=== PATIENT | female | born 1935 | race Caucasian/White ===

== ENCOUNTER 2016-12-21 17:32 | Observation (INO) | payer MEDICARE, OTHER ==
[~2016-12-21] VITALS: Ht 167.6 cm; Wt 100.0 kg
[~2016-12-21 17:32] MED LIST: COUM5TAB PO; DILTSR120 PO; HYDR12.56 PO
[2016-12-21 17:36] VITALS: BP 279/179; PULSE 96; RESP 24; TEMP 97.2; O2SAT 93
[2016-12-21] MEDS ORDERED: CARD120T4 PO (17:55)
[2016-12-21] MEDS ORDERED: COUM5TAB PO (17:55)
--- NOTE | 2016-12-21 18:14 | PD ---
HPI Chief Complaint: Chest Pain Time Seen by Provider: 18:00 Travel History International Travel<30 days: No Contact w/Intl Traveler<30days: No Traveled to known affect area: No History of Present Illness HPI Patient comes in complaining of substernal chest pain that began yesterday evening that is constant. Patient states occasionally feels it radiates to her left shoulder however states he has some numbness and tingling from previous stroke there. Patient reports occasional dyspnea on exertion with this. Denies any shortness of breath otherwise. Denies any fevers, nausea, vomiting, abdominal pain, back pain, neck pain, headaches, change in vision, numbness or tingling anywhere, or loss change in bowel or bladder. Patient denies doing anything for this. Denies anything making it better. PFSH Past Medical History Arthritis: Yes Asthma: No Atrial Fibrillation: Yes Blood Disorders: No Anxiety: No Depression: No Heart Rhythm Problems: Yes (AFIB) Cancer: No Cardiovascular Problems: No High Cholesterol: No Chemotherapy: No Chest Pain: No Congestive Heart Failure: Yes COPD: No Cerebrovascular Accident: Yes (2010) Diabetes: No Diminished Hearing: No Endocrine: No GERD: No Glaucoma: No Genitourinary: No Headaches: No Hepatitis: No Hiatal Hernia: No Hypertension: Yes Kidney Stones: No Musculoskeletal: No Neurologic: Yes (CVA) Psychiatric: No Reproductive: No Respiratory: No Immunizations Current: No Migraines: No Myocardial Infarction: No Renal Failure: No Seizures: No Sickle Cell Disease: No Sleep Apnea: No Thyroid Disease: No Ulcer: No Menopausal: Yes : 2 Para: 2 Miscarriage: 0 : 0 Past Surgical History Abdominal Surgery: Yes (HYSTERECTOMY) AICD: No Appendectomy: No Arteriovenous Shunt: No Cardiac Surgery: No Cholecystectomy: No Ear Surgery: No Endocrine Surgery: No Eye Surgery: No Genitourinary Surgery: No Gynecologic Surgery: Yes Hysterectomy: Yes (partial) Insulin Pump: No Joint Replacement: No Neurologic Surgery: Yes (CVA 2010) Oral Surgery: No Pacemaker: No Thoracic Surgery: No Tonsillectomy: Yes Other Surgery: Yes (SCLEROTHERAPY) Social History Alcohol Use: No Tobacco Use: No Substance Use: No Allergies-Medications (Allergen,Severity, Reaction): Coded Allergies: No Known Allergies (Verified , 12/21/16) Reported Meds & Prescriptions Reported Meds & Active Scripts Active Reported Coumadin (Warfarin) 5 Mg Tab 5 Mg PO DAILY Cardizem (Diltiazem HCl) 120 Mg Tab 120 Mg PO DAILY Review of Systems Except as stated in HPI: all other systems reviewed are Neg Physical Exam Narrative GENERAL: Well-developed, overly nourished, in no acute distress, and non-ill appearing. SKIN: Focused skin assessment warm and dry. HEAD: Atraumatic. Normocephalic. EYES: Pupils equal and round. EOMI. No scleral icterus. No injection or drainage. ENT: No nasal bleeding or discharge. Mucous membranes pink and moist. NECK: Trachea midline. Supple. No nuclear rigidity. CARDIOVASCULAR: Regular rate and rhythm. No murmur appreciated. RESPIRATORY: No accessory muscle use. No respiratory distress. Clear to auscultation. Breath sounds equal bilaterally. MUSCULOSKELETAL: No obvious deformities. No clubbing. No cyanosis. 2+ pitting edema bilateral lower extremities patient reports is chronic. Full range of motion. NEUROLOGICAL: Awake and alert. No obvious cranial nerve deficits. Motor grossly within normal limits. Normal speech. PSYCHIATRIC: Appropriate mood and affect; insight and judgment normal. Data Data Last Documented VS Vital Signs Date Time Temp Pulse Resp B/P (MAP) Pulse Ox O2 Delivery O2 Flow Rate FiO2 12/21/16 18:47 18 97 Room Air 12/21/16 18:30 62 12/21/16 17:36 97.2 Orders Orders Electrocardiogram (12/21/16 18:09) Basic Metabolic Panel (Bmp) (12/21/16 18:09) B-Type Natriuretic Peptide (12/21/16 18:09) Ckmb (Isoenzyme) Profile (12/21/16 18:09) Complete Blood Count With Diff (12/21/16 18:09) Magnesium (Mg) (12/21/16 18:09) Prothrombin Time / Inr (Pt) (12/21/16 18:09) Act Partial Throm Time (Ptt) (12/21/16 18:09) Troponin I (12/21/16 18:09) Chest, Single Ap (12/21/16 18:09) Ecg Monitoring (12/21/16 18:09) Bilateral Bp Monitoring (12/21/16 18:09) Iv Access Insert/Monitor (12/21/16 18:09) Oximetry (12/21/16 18:09) Oxygen Administration (12/21/16 18:09) Sodium Chloride 0.9% Flush (Ns Flush) (12/21/16 18:15) Admit Order (Ed Use Only) (12/21/16 19:43) Activity Bed Rest With Brp (12/21/16 19:43) Vital Signs (Adult) Q4H (12/21/16 19:43) Cardiac Rhythm .As Directed (12/21/16 19:43) Notify Dr: Other .PRN (12/21/16 19:43) Notify DrBronwyn Parameters (12/21/16 19:43) Resp Oxygen Nasal Cannula (12/21/16 ) Ckmb (Isoenzyme) Profile (12/21/16 20:53) Ckmb (Isoenzyme) Profile (12/21/16 23:53) Troponin I (12/21/16 20:53) Troponin I (12/21/16 23:53) Electrocardiogram (12/21/16 20:53) Electrocardiogram (12/21/16 23:53) ^ Obtain (12/21/16 19:43) Sodium Chloride 0.9% Flush (Ns Flush) (12/21/16 19:45) Sodium Chloride 0.9% Flush (Ns Flush) (12/21/16 21:00) Napping Machine Operator / Telemetry EBEN.Q8H (12/21/16 19:43) Labs Laboratory Tests Test 12/21/16 17:53 White Blood Count 6.8 TH/MM3 Red Blood Count 4.34 MIL/MM3 Hemoglobin 13.8 GM/DL Hematocrit 42.3 % Mean Corpuscular Volume 97.4 FL Mean Corpuscular Hemoglobin 31.8 PG Mean Corpuscular Hemoglobin Concent 32.6 % Red Cell Distribution Width 16.1 % Platelet Count 231 TH/MM3 Mean Platelet Volume 8.7 FL Neutrophils (%) (Auto) 66.4 % Lymphocytes (%) (Auto) 18.8 % Monocytes (%) (Auto) 11.8 % Eosinophils (%) (Auto) 2.5 % Basophils (%) (Auto) 0.5 % Neutrophils # (Auto) 4.5 TH/MM3 Lymphocytes # (Auto) 1.3 TH/MM3 Monocytes # (Auto) 0.8 TH/MM3 Eosinophils # (Auto) 0.2 TH/MM3 Basophils # (Auto) 0.0 TH/MM3 CBC Comment DIFF FINAL Differential Comment Prothrombin Time 37.5 SEC Prothromb Time International Ratio 3.2 RATIO Activated Partial Thromboplast Time 37.1 SEC Blood Urea Nitrogen 24 MG/DL Creatinine 0.82 MG/DL Random Glucose 88 MG/DL Calcium Level 7.9 MG/DL Magnesium Level 2.2 MG/DL Sodium Level 138 MEQ/L Potassium Level 4.5 MEQ/L Chloride Level 104 MEQ/L Carbon Dioxide Level 29.9 MEQ/L Anion Gap 4 MEQ/L Estimat Glomerular Filtration Rate 67 ML/MIN Total Creatine Kinase 72 U/L Troponin I LESS THAN 0.02 NG/ML B-Type Natriuretic Peptide 481 PG/ML Exceptions Acute Myocardial Infarction Aspirin Comment: patient is on Coumadin and INR found to be 3.2 MDM Medical Decision Making Medical Screen Exam Complete: Yes Emergency Medical Condition: Yes Interpretation(s) EKG reviewed by Dr. Calderon shows a fibrillation with ventricular rate of 94. No STEMI and no change from January of last year. Chest x-ray read by the radiologist shows: Cardiomegaly without evidence of congestion or acute air space disease. Differential Diagnosis Acute coronary syndrome, electrolyte abnormality, pneumonia, CHF exacerbation, pneumothorax, other Narrative Course Patient was seen and examined. Initial laboratory and radiological studies were ordered. IV was established. Patient was placed on continues cardiac monitoring. Discussed patient with Dr. Calderon, who is in agreement with plan of care and disposition. Discussed all findings and plan of care with patient, who is agreeable for admission to the chest pain center. All questions were answered. Patient remained stable throughout ED course. Diagnosis Primary Impression: Atypical chest pain Admitting Information Admitting Physician Requests: Observation Condition: Stable Dominick Murphy Dec 21, 2016 18:14
[2016-12-21] MEDS ORDERED: SODIUM CHLORIDE 0.9% FLUSH 10 ML FLUSH IVF PRN (18:15)
[2016-12-21 18:30] VITALS: BP 147/82; PULSE 62; RESP 16; O2SAT 94
[2016-12-21 18:47] VITALS: RESP 18; O2SAT 97
[2016-12-21 18:47] LABS: AUTOMATED NEUTROPHIL # 4.5 TH/MM3 (1.8-7.7); BASOPHIL % 0.5 % (0.0-2.0); EOSINOPHIL # 0.2 TH/MM3 (0-0.4); EOSINOPHIL % 2.5 % (0.0-4.0); HEMATOCRIT 42.3 % (35.0-46.0); HEMO FLAGS DIFF FINAL; LYMPH % 18.8 % (9.0-44.0); LYMPHOCYTE # 1.3 TH/MM3 (1.0-4.8); MEAN CELL VOLUME 97.4 FL (80.0-100.0); MEAN CORPUSCULAR HEMOGLOBIN 31.8 PG (27.0-34.0); MEAN CORPUSCULAR HGB CONC 32.6 % (32.0-36.0); MONO % 11.8 % (0.0-8.0); NEUT % 66.4 % (16.0-70.0); PLATELET COUNT 231 TH/MM3 (150-450); RED BLOOD COUNT 4.34 MIL/MM3 (4.00-5.30); RED CELL DISTRIBUTION WIDTH 16.1 % (11.6-17.2); WHITE BLOOD COUNT 6.8 TH/MM3 (4.0-11.0)
[2016-12-21 18:59] LABS: APTT (PATIENT) 37.1 SEC (24.3-30.1); INTERNATIONAL NORMALIZED RATIO 3.2 RATIO; PROTHROMBIN TIME - PATIENT 37.5 SEC (9.8-11.6)
--- NOTE | 2016-12-21 19:14 | RADRPT ---
EXAM DATE/TIME: 12/21/2016 18:52 [facility] COMPARISON: CHEST SINGLE AP, January 19, 2016, 18:17. INDICATIONS : Chest Pain MEDICAL HISTORY : Hypertension. Congestive heart failure. A-fib SURGICAL HISTORY : None. ENCOUNTER: Initial ACUITY: 1 day PAIN SCORE: 0/10 LOCATION: Bilateral chest FINDINGS: Heart is moderately enlarged. Lungs are free of significant airspace disease or congestion. Osseous s tructures appear stable. CONCLUSION: Cardiomegaly without evidence of congestion or acute air space disease. Delano Contreras MD on December 21, 2016 at 19:12 Board Certified Radiologist. This report was verified electronically.
[2016-12-21 19:35] LABS: ANION GAP 4 MEQ/L (5-15); BICARBONATE 29.9 MEQ/L (21.0-32.0); BLOOD UREA NITROGEN 24 MG/DL (7-18); CHLORIDE 104 MEQ/L (98-107); CREATINE KINASE 72 U/L (26-192); GLOMERULAR FILTRATION RATE 67 ML/MIN (>89); MAGNESIUM 2.2 MG/DL (1.5-2.5); POTASSIUM 4.5 MEQ/L (3.5-5.1); SODIUM (NA) 138 MEQ/L (136-145)
[2016-12-21] MEDS ORDERED: SODIUM CHLORIDE 0.9% FLUSH 10 ML FLUSH IV FLUSH PRN (19:45)
[2016-12-21 21:02] VITALS: BP 134/82; PULSE 106; RESP 18; TEMP 98; O2SAT 92
[2016-12-21 21:25] VITALS: PULSE 88
[2016-12-21] MEDS: SODIUM CHLORIDE 0.9% FLUSH 10 ML FLUSH IV FLUSH SCH (22:00)
[2016-12-22 00:01] VITALS: BP 140/92; PULSE 97; RESP 18; TEMP 97.9; O2SAT 94
[2016-12-22 01:12] VITALS: PULSE 94
[2016-12-22 04:32] VITALS: PULSE 102
[2016-12-22 07:11] VITALS: BP 137/77; PULSE 106; RESP 16; TEMP 98.7; O2SAT 92; O2SAT 93
[2016-12-22] MEDS ORDERED: DILTIAZEM-CD 120 MG CAP ER PO SCH (09:00)
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
--- NOTE | 2016-12-22 09:28 | EKG ---
Date Performed: 12/21/2016 Time Performed: 21:08:26 PTAGE: 81 years EKG: ATRIAL FIBRILLATION MARKED LEFT AXIS DEVIATION LEFT BUNDLE BRANCH BLOCK Compared to prior t racing no significant change ABNORMAL ECG PREVIOUS TRACING : 12/21/2016 17.52 DOCTOR: Jean Reno Interpretating Date/Time 12/24/2016 07:00:05
--- NOTE | 2016-12-22 09:28 | EKG ---
Date Performed: 12/21/2016 Time Performed: 17:52:34 PTAGE: 81 years EKG: ATRIAL FIBRILLATION MARKED LEFT AXIS DEVIATION LEFT BUNDLE BRANCH BLOCK Compared to prior t racing no significant change ABNORMAL ECG INTERPRETATION BASED ON A DEFAULT AGE OF 40 YEARS PREVIOUS TRACING : 01/19/2016 17.56 DOCTOR: Jean Reno Interpretating Date/Time 12/22/2016 09:26:38
[2016-12-22 09:34] VITALS: PULSE 95
[2016-12-22] MEDS: SODIUM CHLORIDE 0.9% FLUSH 10 ML FLUSH IV FLUSH SCH (09:48)
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
[2016-12-22 11:11] VITALS: BP 125/83; PULSE 119; RESP 17; TEMP 97.5; O2SAT 94
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
== END 2016-12-22 16:47 | disposition home or self-care (01) ==
LOC: NEPE 17:32 → NEDA 19:46 → NEPFCDU 21:01
PROVIDERS: ADMIT Internal Medicine Interventional Cardiology; ATTEND Internal Medicine Interventional Cardiology
DX: R07.89 Other chest pain (principal); I48.2 Chronic atrial fibrillation; I10 Essential (primary) hypertension; I87.2 Venous insufficiency (chronic) (peripheral); M19.90 Unspecified osteoarthritis, unspecified site; E66.9 Obesity, unspecified; Z68.35 Body mass index [BMI] 35.0-35.9, adult
CPT/HCPCS: 71010; 80048; 82550; 83735; 83880; 84484; 85025; 85610; 85730; 93005; 99285; G0378

== ENCOUNTER 2017-08-05 09:27 | Emergency (ER) | payer MEDICARE, OTHER ==
[~2017-08-05] VITALS: Ht 167.6 cm; Wt 95.0 kg
[~2017-08-05 09:27] MED LIST changes: +CARD120T4 PO; -DILTSR120 PO; -HYDR12.56 PO
[2017-08-05 09:43] VITALS: BP 138/96; PULSE 92; RESP 19; TEMP 97.8; O2SAT 95
[2017-08-05] MEDS ORDERED: CYCLOBENZAPRINE HCL 10 MG TAB PO ONE (10:00)
[2017-08-05] MEDS ORDERED: ACETAMINOPHEN/HYDROcodone 325 MG/5 MG TAB PO ONE (10:00)
--- NOTE | 2017-08-05 10:24 | PD ---
HPI . Right leg pain Chief Complaint: Pain: Acute or Chronic Time Seen by Provider: 09:30 Travel History International Travel<30 days: No Contact w/Intl Traveler<30days: No Traveled to known affect area: No History of Present Illness HPI This patient presents with a chief complaint of right leg pain. Onset was last night. Atraumatic. No previous similar history. Pain is described as cramping and is rated 10/10. Pain has been unresponsive to Tylenol. Pain is exacerbated by standing. The patient states that her entire leg hurts but that the pain is the worst around her knee. This patient reports that she suffered a previous stroke which has left her with left leg weakness. She states that she is normally able to get around pretty well with her right leg and the use of walker. Now that she is having pain in her right leg, she is having difficulty getting around. She denies any back pain. She has not been running any fever. PFSH Past Medical History Arthritis: Yes Asthma: No Atrial Fibrillation: Yes Blood Disorders: No Anxiety: No Depression: No Heart Rhythm Problems: Yes (AFIB) Cancer: No Cardiac Catheterization: No Cardiovascular Problems: Yes High Cholesterol: No Chemotherapy: No Chest Pain: No Congestive Heart Failure: Yes COPD: No Cerebrovascular Accident: Yes Diabetes: No Diminished Hearing: No Endocrine: No GERD: No Glaucoma: No Genitourinary: No Headaches: No Hepatitis: No Hiatal Hernia: No Hypertension: Yes Kidney Stones: No Musculoskeletal: No Neurologic: Yes (CVA with left sided deficit) Psychiatric: No Reproductive: No Respiratory: No Immunizations Current: No Migraines: No Myocardial Infarction: No Renal Failure: No Seizures: No Sickle Cell Disease: No Sleep Apnea: No Thyroid Disease: No Ulcer: No Influenza Vaccination: No ?: Not Menopausal: Yes : 2 Para: 2 Miscarriage: 0 : 0 Past Surgical History Abdominal Surgery: Yes (HYSTERECTOMY) AICD: No Appendectomy: No Arteriovenous Shunt: No Cardiac Surgery: No Cholecystectomy: No Coronary Artery Bypass Graft: No Ear Surgery: No Endocrine Surgery: No Eye Surgery: No Genitourinary Surgery: No Gynecologic Surgery: Yes Hysterectomy: Yes Insulin Pump: No Joint Replacement: No Neurologic Surgery: Yes (CVA 2010) Oral Surgery: No Pacemaker: No Thoracic Surgery: No Tonsillectomy: Yes Other Surgery: Yes (SCLEROTHERAPY) Social History Alcohol Use: No Tobacco Use: No Substance Use: No Allergies-Medications (Allergen,Severity, Reaction): Coded Allergies: Penicillins (Verified Allergy, Severe, 08/05/17) Reported Meds & Prescriptions Reported Meds & Active Scripts Active Reported Coumadin (Warfarin) 5 Mg Tab 5 Mg PO DAILY Cardizem (Diltiazem HCl) 120 Mg Tab 120 Mg PO DAILY Review of Systems Except as stated in HPI: all other systems reviewed are Neg Physical Exam Narrative GENERAL: Patient is awake and alert and in no acute distress. SKIN: warm/dry. She has skin changes of her lower legs compatible with chronic peripheral vascular disease. The skin is darkened and thickened. HEAD: Normocephalic. Atraumatic. EYES: Pupils equal and round. No scleral icterus. No injection or drainage. ENT: No nasal bleeding or discharge. Mucous membranes pink and moist. NECK: Trachea midline. Full range of motion without pain.. CARDIOVASCULAR: Regular rate and rhythm. RESPIRATORY: No accessory muscle use. MUSCULOSKELETAL: No obvious deformities. She has diffuse tenderness to palpation of her right lower extremity. She has tenderness in the groin and over the greater trochanter and pain with logrolling. She has tenderness in the knee and pain with passive range of motion. She does not seem to have any ankle or foot tenderness. The musculature of her thigh and leg are also tender. There is no noted swelling of her right lower extremity. The right and left legs have the same skin color. Distal pulses are equal. NEUROLOGICAL: Awake and alert. No obvious cranial nerve deficits. Motor grossly within normal limits. Normal speech. PSYCHIATRIC: Appropriate mood and affect; insight and judgment normal. Data Data Last Documented VS Vital Signs Date Time Temp Pulse Resp B/P (MAP) Pulse Ox O2 Delivery O2 Flow Rate FiO2 08/05/17 09:43 97.8 92 19 138/96 (110) 95 Orders Orders Acetamin-Hydrocod 325-5 Mg (Mulberry 5-325 (08/05/17 10:00) Cyclobenzaprine (Flexeril) (08/05/17 10:00) Us Leg Venous Doppler (08/05/17 10:00) Knee, Complete (4vws) (08/05/17 10:00) [facility] Medical Decision Making Medical Screen Exam Complete: Yes Emergency Medical Condition: Yes Differential Diagnosis Differential diagnosis of leg pain includes but is not limited to lumbar radiculopathy, arthritis, myalgias, DVT. Narrative Course This patient presents with atraumatic right lower extremity pain. Her pain seems to be most pronounced at the knee. I suspect that she has arthritis in her knee that is making her entire leg hurt. However, I feel that DVT needs to be ruled out. I am also concerned about arthritis in her hip because of the tenderness in the hip joint and the pain with logrolling. I had ordered an x- ray of the hip but the patient refuses that. She will have an x-ray of her right knee and an ultrasound of her right leg. Treatment and disposition will be based upon the results of these studies. Last Impressions Lower Extremity Ultrasound 08/05/17 1000 Signed Impressions: Service Date/Time: Saturday, August 05, 2017 10:55 - CONCLUSION: No evidence of right lower extremity DVT. Asad Hayden MD Knee X-Ray 08/05/17 1000 Signed Impressions: Service Date/Time: Saturday, August 05, 2017 10:21 - CONCLUSION: 1. Mild osteoarthritic findings of the knee. 2. Diffuse bone demineralization. 3. Small joint effusion. 4. No evidence of fracture. Asad Hayden MD Diagnosis Primary Impression: Right leg pain Additional Impression: Arthritis Patient Instructions: Arthritis (ED), General Instructions Med/Other Pt SpecificInfo: Prescription(s) given Scripts Tramadol (Ultram) 50 Mg Tab 50 MG PO Q4H Y for PAIN, #12 TAB 0 Refills Prov: Sherlyn Lala MD 08/05/17 Prednisone (Prednisone) 50 Mg Tab 50 MG PO DAILY, #6 TAB 0 Refills Prov: Sherlyn Lala MD 08/05/17 Disposition: 01 DISCHARGE HOME Condition: Stable Sherlyn Lala MD Aug 05, 2017 10:24
--- NOTE | 2017-08-05 10:47 | RADRPT ---
EXAM DATE/TIME: 08/05/2017 10:21 [facility] COMPARISON: No previous studies available for comparison. INDICATIONS : Right knee pain. No known injury. MEDICAL HISTORY : Hypertension. Congestive heart failure. Atrial fibrilation. SURGICAL HISTORY : None. ENCOUNTER: Initial ACUITY: 1 day PAIN SCORE: 9/10 LOCATION: Right knee FINDINGS: 5 views right knee. Prominent diffuse bone demineralization. Small tricompartmental osteophytes. Mild lateral compartment narrowing. No evidence of fracture. Bone alignment within normal limits. Small j oint effusion. CONCLUSION: 1. Mild osteoarthritic findings of the knee. 2. Diffuse bone demineralization. 3. Small joint effusion. 4. No evidence of fracture. Asad Hayden MD on August 05, 2017 at 10:44 Board Certified Radiologist. This report was verified electronically.
--- NOTE | 2017-08-05 11:37 | RADRPT ---
EXAM DATE/TIME: 08/05/2017 10:55 [facility] COMPARISON: No previous studies available for comparison. INDICATIONS : Right leg pain. MEDICAL HISTORY : Hypertension. Arthritis. CVA 2010. AFIB. SURGICAL HISTORY : Hysterectomy. Sclerotherapy. ENCOUNTER: Subsequent ACUITY: 1 day PAIN SCORE: 10/10 LOCATION: Right leg. TECHNIQUE: Venous ultrasound of the leg was performed from the inguinal ligament to the proximal calf. Real-emil e, color Doppler and spectral tracing, compression and augmentation techniques were used. FINDINGS: There is normal compressibility of the deep venous system from the inguinal region to the proximal ca lf. No echogenic clot is seen in the lumen of the common femoral, femoral, popliteal, and posterior tibial veins. There is a normal response of the venous system to proximal and distal augmentation an d respiration. In the popliteal fossa there is a 2.5 x 1.8 x 2.1 cm mixed echogenicity mass with central hyperechoge nicity. This may represent a lymph node. CONCLUSION: No evidence of right lower extremity DVT. Asad Hayden MD on August 05, 2017 at 11:33 Board Certified Radiologist. This report was verified electronically.
[2017-08-05] MEDS ORDERED: TRAM50 PO (12:17)
[2017-08-05] MEDS ORDERED: PRED50 PO (12:17)
--- NOTE | 2017-08-05 13:48 | HHI.FF ---
Face to Face Verification Diagnosis: (1) Right leg pain Physical Therapy Order: Evaluate and Treat, Improve ambulation, Strength and gait training Instructions: arthritis R knee limiting ambulation. previous stroke causing left leg weakness. Please evaluate and treat. Occupational Therapy Order: Evaluate and Treat, Improve ADL, Gross motor coordination, Fine motor coordination Instructions: previous stroke with left side weakness. now with arthritis in right knee. I have seen patient Lana James on 08/05/17. My clinical findings support the need for the requested home health care services because: Previous stroke with left-sided weakness. Needs a walker to ambulate. Now has arthritis in her right knee further impeding her ability to ambulate. Ltd mobility - disease progression Deconditioned w/ increased weakness High risk of falls I certify that my clinical findings support that this patient is homebound because: Unsteady gait/balance Unsafe to leave home unassisted Unable to use public transportation Sherlyn Lala MD Aug 05, 2017 13:48
== END 2017-08-05 14:33 | disposition home or self-care (01) ==
LOC: NEPD 09:27
DX: M79.604 Pain in right leg (principal); M17.11 Unilateral primary osteoarthritis, right knee; I11.0 Hypertensive heart disease with heart failure; I50.9 Heart failure, unspecified; I48.91 Unspecified atrial fibrillation; Z79.01 Long term (current) use of anticoagulants
CPT/HCPCS: 73564; 93971; 99284

== ENCOUNTER 2017-10-26 12:55 | Inpatient (IN) ==
--- NOTE | 2017-10-26 13:48 | ED ---
HPI General Chief complaint: Extremity Injury, Lower Stated complaint: Medical/Evac Time Seen by Provider: 10/26/17 12:58 Source: patient, EMS, RN notes reviewed and old records reviewed Mode of arrival: EMS History of Present Illness HPI narrative: 82yF brought in by EMS for lower extremity edema. The patient states that she's had edema of both lower extremities for the past several days but reports that it acutely worsened last night. This morning, she also noticed swelling of her abdomen as well. Denies fever or chills, chest pain, dyspnea, or orthopnea. Admits to a history of CHF but has not been taking diuretics recently (unclear if this was a medication change or non-compliance). Family history non-contributory. Related Data Home Medications Medication Instructions Recorded Confirmed acetaminophen [Tylenol] 325 mg PO DAILY PRN 10/26/17 10/26/17 cholecalciferol (vitamin D3) 2,000 unit PO DAILY 10/26/17 10/26/17 [Vitamin D3] cyanocobalamin (vitamin B-12) 1,000 mcg PO DAILY 10/26/17 10/26/17 [Vitamin B-12] diltiazem HCl 120 mg PO DAILY 10/26/17 10/26/17 hydrocodone-acetaminophen [[place]] 1 tab PO Q4H PRN 10/26/17 10/26/17 [id number] 1 tab PO DAILY 10/26/17 10/26/17 warfarin 5 mg PO DAILY 10/26/17 10/26/17 Allergies Allergy/AdvReac Type Severity Reaction Status Date / Time Penicillins Allergy Severe Verified 10/08/17 10:47 Review of Systems Except as stated in HPI: all other systems reviewed are negative Constitutional Denies fever(s) Eyes Denies blurry vision ENT Denies nasal congestion Cardiovascular Denies chest pain Respiratory Denies cough Gastrointestinal Denies nausea Genitourinary Denies dysuria Musculoskeletal Denies back pain Neurologic Denies confusion Psychiatric Denies confusion PMFSH History History Provided By: Patient Medical History Medical History Atrial fibrillation (Acute) CHF (congestive heart failure) (Acute) History of hysterectomy (Acute) Stroke (Acute) Social History Social History Substance History: No History of Abuse Second Hand Smoke Exposure: No Smoking Status: Never smoker How Often Do You Have a Drink Containing Alcohol: Never Recent Travel in [facility] within the Last 8 Weeks: No Recent Out of Country Travel within the Last 8 Weeks: No Exam Const General: healthy appearing and no acute distress [facility] Head: normocephalic and atraumatic Face and sinus: normal facial exam Eyes General: appearance normal, both eyes and all related structures Pupils: PERRL Chest Chest: normal inspection of the chest Resp Effort & Inspection: normal respiratory effort Auscultation: no rhonchi and no wheezes Cardio Rate: regular rate Rhythm: regular rhythm GI Inspection: non-distended Palpation: soft and nontender Skin Other: Chronic venous stasis changes to bilateral lower extremities Neuro General: alert, awake, oriented x3 and no focal motor deficits Extrem Other: 2-3+ pitting edema to groin bilaterally Anasarca Psych Affect: normal affect Course Initial Documented Vital Signs Respiratory Rate 20 10/26/17 13:28 Blood Pressure 197/100 H 10/26/17 13:28 Pulse Oximetry 95 10/26/17 13:28 Last Documented Vital Signs Temperature 98.3 F 10/26/17 13:32 Pulse Rate 92 H 10/26/17 13:32 Respiratory Rate 20 10/26/17 13:32 Blood Pressure 197/100 H 10/26/17 13:32 Pulse Oximetry 95 10/26/17 13:32 Medical Decision Making [facility] Narrative Medical decision making narrative: Assessment: 82yF presenting with anasarca Plan: EKG and monitor Labs, including trop and BNP CXR US duplex bilateral LEs Reassess Addendum: Patient's BP elevated to 230 systolic, now 190 after IV labetalol. Patient intermittently complains of chest "pressure". Initial trop negative, BNP in the 100s, labs otherwise unremarkable. CXR and lower extremity duplex negative. This patient will need cardiac monitoring, BP control, serial troponins, and diuresis. Case discussed with Dr. Cordova of [facility]; patient understands and agrees with plan to keep her in the hospital. Differential Diagnosis Differential Diagnosis: Differential diagnosis includes, but is not limited to: CHF exacerbation, DVT, peripheral edema Medical Records Medical records reviewed: Yes I reviewed the patient's medical records. Lab Data Lab results reviewed: Yes I reviewed the patient's lab results. Result diagrams: 10/26/17 13:26 10/26/17 13:26 Lab Results 10/26/17 10/26/17 10/26/17 Range/Units 13:26 13:26 13:26 WBC 5.7 (4.0-11.0) th/mm3 RBC 3.78 L (4.00-5.30) mil/mm3 Hgb 13.0 (11.6-15.3) gm/dL Hct 37.4 (35.0-46.0) % MCV 98.9 (80.0-100.0) fL MCH 34.5 H (27.0-34.0) pg MCHC 34.9 (32.0-36.0) % RDW 14.4 (11.6-17.2) % Plt Count 230 (150-450) th/mm3 MPV 8.4 (7.0-11.0) fL Neut % (Auto) 65.1 (16.0-70.0) % Lymph % (Auto) 21.1 (9.0-44.0) % Dent % (Auto) 10.7 H (0.0-8.0) % Eos % (Auto) 2.7 (0.0-4.0) % Baso % (Auto) 0.4 (0.0-2.0) % Neut # (Auto) 3.7 (1.8-7.7) th/mm3 Lymph # (Auto) 1.2 (1.0-4.8) th/mm3 Dent # (Auto) 0.6 (0.0-0.9) th/mm3 Eos # (Auto) 0.2 (0.0-0.4) th/mm3 Baso # (Auto) 0.0 (0.0-0.2) th/mm3 WBC Differential . Differential Comment Auto diff final Sodium 143 (136-145) meq/L Potassium 4.2 (3.5-5.1) meq/L Chloride 104 (98-107) meq/L Carbon Dioxide 28.8 (21.0-32.0) meq/L Anion Gap 10 (5-15) meq/L BUN 20 H (7-18) mg/dL Creatinine 0.72 (0.50-1.00) mg/dL Estimated GFR 77 L (>89) mL/min Random Glucose 85 (74-106) mg/dL Calcium 9.1 (8.5-10.1) mg/dL Total Bilirubin 0.6 (0.2-1.0) mg/dL AST 20 (15-37) U/L ALT 12 (10-53) U/L Alkaline Phosphatase 139 H (45-117) U/L Troponin I Less than 0.02 L (0.02-0.05) ng/mL B-Natriuretic Peptide 129 H (0-100) pg/mL Total Protein 6.8 (6.4-8.2) g/dL Albumin 3.3 L (3.4-5.0) g/dL Urine Color (Yellw/Straw) Urine Clarity (Clear) Urine pH (5.0-8.5) Ur Specific [place] (1.002-1.035) Urine Protein (Neg-Trace) mg/dL Urine Glucose (UA) (Negative) mg/dL Urine Ketones (Negative) mg/dL Urine Occult Blood (Negative) Urine Nitrate (Negative) Urine Bilirubin (Negative) Urine Urobilinogen (Less than 2) mg/dL Ur Leukocyte Esterase (Negative) Urine RBC (0-3) /hpf Urine WBC (0-5) /hpf Urine WBC Clumps (None) Ur Squamous Epith Cells (0-5) /hpf Ur Transition Epith Cell (None) /hpf Ur Renal Epithelial Cell (None) /hpf Urine Bacteria (None) /hpf Urine Mucus (Occasional) /lpf Micro UA Comment Urine Culture Comments 10/26/17 Range/Units 13:57 WBC (4.0-11.0) th/mm3 RBC (4.00-5.30) mil/mm3 Hgb (11.6-15.3) gm/dL Hct (35.0-46.0) % MCV (80.0-100.0) fL MCH (27.0-34.0) pg MCHC (32.0-36.0) % RDW (11.6-17.2) % Plt Count (150-450) th/mm3 MPV (7.0-11.0) fL Neut % (Auto) (16.0-70.0) % Lymph % (Auto) (9.0-44.0) % Dent % (Auto) (0.0-8.0) % Eos % (Auto) (0.0-4.0) % Baso % (Auto) (0.0-2.0) % Neut # (Auto) (1.8-7.7) th/mm3 Lymph # (Auto) (1.0-4.8) th/mm3 Dent # (Auto) (0.0-0.9) th/mm3 Eos # (Auto) (0.0-0.4) th/mm3 Baso # (Auto) (0.0-0.2) th/mm3 WBC Differential Differential Comment Sodium (136-145) meq/L Potassium (3.5-5.1) meq/L Chloride (98-107) meq/L Carbon Dioxide (21.0-32.0) meq/L Anion Gap (5-15) meq/L BUN (7-18) mg/dL Creatinine (0.50-1.00) mg/dL Estimated GFR (>89) mL/min Random Glucose (74-106) mg/dL Calcium (8.5-10.1) mg/dL Total Bilirubin (0.2-1.0) mg/dL AST (15-37) U/L ALT (10-53) U/L Alkaline Phosphatase (45-117) U/L Troponin I (0.02-0.05) ng/mL B-Natriuretic Peptide (0-100) pg/mL Total Protein (6.4-8.2) g/dL Albumin (3.4-5.0) g/dL Urine Color Yellow (Yellw/Straw) Urine Clarity Hazy H (Clear) Urine pH 6.0 (5.0-8.5) Ur Specific [place] 1.013 (1.002-1.035) Urine Protein Negative (Neg-Trace) mg/dL Urine Glucose (UA) Negative (Negative) mg/dL Urine Ketones Trace H (Negative) mg/dL Urine Occult Blood Negative (Negative) Urine Nitrate Negative (Negative) Urine Bilirubin Negative (Negative) Urine Urobilinogen Less than 2 (Less than 2) mg/dL Ur Leukocyte Esterase Large H (Negative) Urine RBC 1 (0-3) /hpf Urine WBC 65 H (0-5) /hpf Urine WBC Clumps Rare H (None) Ur Squamous Epith Cells 9 (0-5) /hpf Ur Transition Epith Cell 1 (None) /hpf Ur Renal Epithelial Cell 1 (None) /hpf Urine Bacteria Few H (None) /hpf Urine Mucus Few H (Occasional) /lpf Micro UA Comment Culture indicated Urine Culture Comments Culture indicated Imaging Data Radiologist's impression: Chest X-Ray 10/26/17 13:06 CONCLUSION: Cardiomegaly. No acute pulmonary disease. Venous Doppler Study 10/26/17 13:06 CONCLUSION: No evidence of deep venous thrombosis. ECG Data Interpretation: Rate: 60-140 BPM Rhythm: Atrial fibrillation [place]: Normal Intervals: Normal intervals, no blocks, QTc 368 ms Q waves: III, V2 T waves: Upright, no inversions ST segments: No elevations or depressions Impression: Rate controlled atrial fibrillation, no change as compared to EKG from 12/21/2016. Discharge Plan Discharge Disposition Patient Disposition: 30 Still Patient Discharge Condition Condition: Stable Discharge Details Diagnosis: Edema, Acute exacerbation of CHF (congestive heart failure), Hypertensive urgency Physicians Team ED Provider: Aurora Cueva Primary Care Provider: Cedrick Cox Rxs /Orders / Referrals /Forms Prescriptions: No Action hydrocodone-acetaminophen [Phoenix] 5-325 mg Tablet 1 tab PO Q4H PRN (Reason: Pain) RF: 0 cyanocobalamin (vitamin B-12) [Vitamin B-12] 1,000 mcg Tablet 1,000 mcg PO DAILY RF: 0 warfarin 5 mg Tablet 5 mg PO DAILY RF: 0 [id number]-gaxvptrf-pqlnuy Tablet 1 tab PO DAILY RF: 0 diltiazem HCl 120 mg Tablet Extended Release 24 Hr 120 mg PO DAILY RF: 0 acetaminophen [Tylenol] 325 mg Capsule 325 mg PO DAILY PRN (Reason: Pain) RF: 0 cholecalciferol (vitamin D3) [Vitamin D3] 2,000 unit Tablet 2,000 unit PO DAILY RF: 0 Discharge Interventions Interventions: Vital Signs Last Done: 10/26/17 13:32 Status ED Status: With Doctor
[2017-10-26 14:12] LABS: Baso % (Auto) 0.4 % (0.0-2.0); Eos # (Auto) 0.2 th/mm3 (0.0-0.4); Eos % (Auto) 2.7 % (0.0-4.0); Hematocrit 37.4 % (35.0-46.0); Lymph # (Auto) 1.2 th/mm3 (1.0-4.8); Lymph % (Auto) 21.1 % (9.0-44.0); Mean Corpuscular HGB Conc 34.9 % (32.0-36.0); Mean Corpuscular Hemoglobin 34.5 pg (27.0-34.0); Mean Corpuscular Volume 98.9 fL (80.0-100.0); Mean Platelet Volume 8.4 fL (7.0-11.0); Mono # (Auto) 0.6 th/mm3 (0.0-0.9); Mono % (Auto) 10.7 % (0.0-8.0); Neut # (Auto) 3.7 th/mm3 (1.8-7.7); Neut % (Auto) 65.1 % (16.0-70.0); Platelet Count 230 th/mm3 (150-450); Red Blood Count 3.78 mil/mm3 (4.00-5.30); Red Cell Distribution Width 14.4 % (11.6-17.2); White Blood Count 5.7 th/mm3 (4.0-11.0)
[2017-10-26 14:20] LABS: Bacteria,Urine Few /hpf; Bilirubin,Urine Negative (Negative); Clarity,Urine Hazy (Clear); Color,Urine Yellow (Yellw/Straw); Glucose,Urine (UA) Negative (Negative); Leukocyte Esterase,Urine Large (Negative); Mucus,Urine Few /lpf (Occasional); Nitrite,Urine Negative (Negative); Renal Epithelial Cells,Urine 1 /hpf; Specific Gravity,Urine 1.013 (1.002-1.035); Squamous Epithelial Cell,Urine 9 /hpf (0-5); Transitional Epi Cells,Urine 1 /hpf
[2017-10-26 14:39] LABS: Albumin 3.3 g/dL (3.4-5.0); Anion Gap 10 meq/L (5-15); Aspartate Aminotransferase 20 U/L (15-37); Blood Urea Nitrogen 20 mg/dL (7-18); Calcium 9.1 mg/dL (8.5-10.1); Carbon Dioxide 28.8 meq/L (21.0-32.0); Chloride 104 meq/L (98-107); Glomerular Filtration Rate 77 mL/min (>89); Glucose,Random 85 mg/dL (74-106); Potassium 4.2 meq/L (3.5-5.1); Sodium 143 meq/L (136-145)
[2017-10-26 14:40] LABS: Alanine Aminotransferase 12 U/L (10-53)
[2017-10-26 14:43] LABS: Alkaline Phosphatase 139 U/L (45-117); Total Protein 6.8 g/dL (6.4-8.2)
--- NOTE | 2017-10-26 14:56 | US ---
EXAM DATE: 10/26/2017 2:50 PM EDT AGE/SEX: 82 years / Female INDICATIONS: Bilateral leg swelling CLINICAL DATA: This is the patient's subsequent encounter. Patient reports that signs and symptoms h ave been present for 3 days and indicates a pain score of 4/10. MEDICAL/SURGICAL HISTORY: . CHF. A-fib. Stroke. Hysterectomy. COMPARISON: [facility] [place], US LEG RIGHT VENOUS DOPPLER, 10/08/2017. . TECHNIQUE: Venous ultrasound of both lower extremities was performed from the inguinal ligament to t he proximal calf. Real-time, color Doppler and spectral tracing, compression and augmentation techni ques were used. FINDINGS: Right Leg: Normal compression of the deep venous system from the inguinal region to the proximal maria dolores f. No echogenic clot is seen. Normal response of the venous system to augmentation and respiration. Left Leg: Normal compression of the deep venous system from the inguinal region to the proximal calf . No echogenic clot is seen. Normal response of the venous system to augmentation and respiration. Other: None. CONCLUSION: No evidence of deep venous thrombosis. Electronically signed by: Arnold Demarco MD 10/26/2017 2:55 PM EDT
--- NOTE | 2017-10-26 15:00 | XR ---
EXAM DATE: 10/26/2017 1:47 PM EDT AGE/SEX: 82 years / Female INDICATIONS: Short of Breath CLINICAL DATA: This is the patient's initial encounter. Patient reports that signs and symptoms have been present for 1 day and indicates a pain score of 0/10. MEDICAL/SURGICAL HISTORY: Congestive heart failure. Hypertension. CVA, Irregular Heart Beat, T B Tonsillectomy. Hysterectomy. COMPARISON: [facility] [place], CHEST SINGLE AP, 12/21/2016. . FINDINGS: The cardiac silhouette is enlarged in transverse diameter. The lungs are free of acute parenchymal op acity. No effusions are identified. The aortic knob is prominent with tortuosity of the descending th oracic aorta. CONCLUSION: Cardiomegaly. No acute pulmonary disease. Electronically signed by: Arnold Demarco MD 10/26/2017 2:59 PM EDT
[2017-10-26] MEDS ORDERED: Labetalol HCl Inj 100 MG/20 ML Vial IV.PUSH ONE (15:14)
[2017-10-26] MEDS ORDERED: Acetaminophen 325 MG Tablet PO PRN (16:02)
--- NOTE | 2017-10-26 16:14 | P.HPIM ---
History of Present Illness Primary Care Physician: Cedrick Cox Chief Complaint: swelling. sob History of Present Illness: Ms. James is an 82 y/o WF with A. fib on chronic anticoagulation with Coumadin, chf , hx of CVA with left LE weakness, HTN and hyperlipidemia. She presented to the ED at [facility] [place] on 10/08/17 with complaints of worsening pain in the right LE.. She was evaluated and found to have effusion which may have been hemarthrosis. Seen by ortho but no intervention and pt not interested in holding her coumadin. She was week and limited in ambulation and sent to [facility]. Pt now returns today complaining of increased sob, lower extremity edema and even possible swelling around her abdomen. She says it started about 2 days ago. She was given iv lasix here in ED. Past Medical History A. fib on chronic anticoagulation with Coumadin Nonischemic cardiomyopathy CHF with EF 45-50% in 2014 Hx of CVA with left LE weakness HTN Hyperlipidemia. Hx of rhabdomyolysis Degenerative joint disease Hx of lung nodules Past Surgical History Sclerotherapy for varicose veins Hysterectomy Family History Noncontributory Social History Denies any alcohol, tobacco or illicit drug use - Diagnosis (1) CHF (congestive heart failure) (2) CVA (cerebral vascular accident) (3) Afib Inpatient Certification: I certify that the inpatient services were ordered in accordance with Medicare regulations governing the order. This includes certification that hospital inpatient services are reasonable and necessary and in the case of services not specified as inpatient-only under 42 CFR 419.22(n), that they are appropriately provided as inpatient services in accordance to with the 2-midnight benchmark under 43 CFR 412.3(e) Estimated Total Length of Stay (Days): 3 Plans for Post Hospital Care: Not yet determined Review of Systems sob lower extremity swelling PMFSH - History History Provided By: Patient - Medical History Medical History: Medical History (Last Reviewed 10/26/17 @ 13:43 by Aurora Cueva DO) Atrial fibrillation CHF (congestive heart failure) History of hysterectomy Stroke - Tobacco History Second Hand Smoke Exposure: No Smoking Status: Never smoker - Alcohol History How Often Do You Have a Drink Containing Alcohol: Never - Substance Use History Substance History: No History of Abuse - Travel History Recent Travel in the [place] Within the Last 8 Weeks: No Recent Travel Out of the Country Within the Last 8 Weeks: No - Immunization History Tetanus Immunization: Unsure Hx Influenza Vaccine This Season: Yes Medications and Allergies Active Medications: Active Medications Acetaminophen (Tylenol) 650 mg PO Q4H PRN PRN Reason: Temp > 100.4 Hydrocodone Bitart/Acetaminophen ([place] 5/325) 1 tab PO Q4H PRN PRN Reason: Pain Cyanocobalamin (Vitamin B12) 1,000 mcg PO DAILY CHEY Non-Formulary Medication (Diltiazem Hcl [Diltiazem Hcl]) 120 mg PO DAILY CHEY Non-Formulary Medication (Cholecalciferol (Vitamin D3) [Vitamin D3]) 2,000 unit PO DAILY CHEY Ondansetron HCl (Zofran Inj) 4 mg IV.PUSH Q6H PRN PRN Reason: NAUSEA OR VOMITING Allergies Allergy/AdvReac Type Severity Reaction Status Date / Time Penicillins Allergy Severe Verified 10/08/17 10:47 Home Medications Medication Instructions Recorded Confirmed Type acetaminophen [Tylenol] 325 mg PO DAILY PRN 10/26/17 10/26/17 History cholecalciferol (vitamin D3) 2,000 unit PO DAILY 10/26/17 10/26/17 History [Vitamin D3] cyanocobalamin (vitamin B-12) 1,000 mcg PO DAILY 10/26/17 10/26/17 History [Vitamin B-12] diltiazem HCl 120 mg PO DAILY 10/26/17 10/26/17 History hydrocodone-acetaminophen [[place]] 1 tab PO Q4H PRN 10/26/17 10/26/17 History mqaesenpmyzq-tluumssw-pcqfjo 1 tab PO DAILY 10/26/17 10/26/17 History warfarin 5 mg PO DAILY 10/26/17 10/26/17 History Exam Vital signs: Vital Signs 10/26/17 13:28 10/26/17 13:32 Temperature 98.3 F Pulse Rate 92 H Respiratory Rate 20 20 Blood Pressure 197/100 H 197/100 H Pulse Oximetry 95 95 Intake & Output 10/25/17 10/26/17 10/26/17 18:59 06:59 18:59 Weight 124.738 kg oriented very irritated mild jvd heart irreg lung cta abd s/nt ext 1-2plus edema of feet/lower legs rene. Results - Labs CBC & Chem 7: 10/26/17 13:26 10/26/17 13:26 Labs: Short CBC 10/26/17 Range/Units 13:26 WBC 5.7 (4.0-11.0) th/mm3 Hgb 13.0 (11.6-15.3) gm/dL Hct 37.4 (35.0-46.0) % Plt Count 230 (150-450) th/mm3 BMP 10/26/17 13:26 Sodium 143 Potassium 4.2 Chloride 104 Carbon Dioxide 28.8 BUN 20 H Creatinine 0.72 Calcium 9.1 Cardiac Enzymes 10/26/17 Range/Units 13:26 Troponin I Less than 0.02 L (0.02-0.05) ng/mL Liver Function 10/26/17 Range/Units 13:26 Total Bilirubin 0.6 (0.2-1.0) mg/dL AST 20 (15-37) U/L ALT 12 (10-53) U/L Alkaline Phosphatase 139 H (45-117) U/L Albumin 3.3 L (3.4-5.0) g/dL Urine 10/26/17 Range/Units 13:57 Urine Color Yellow (Yellw/Straw) Urine Clarity Hazy H (Clear) Urine pH 6.0 (5.0-8.5) Ur Specific [place] 1.013 (1.002-1.035) Urine Protein Negative (Neg-Trace) mg/dL Urine Glucose (UA) Negative (Negative) mg/dL - Imaging Impressions Chest X-Ray 10/26/17 13:06 CONCLUSION: Cardiomegaly. No acute pulmonary disease. Venous Doppler Study 10/26/17 13:06 CONCLUSION: No evidence of deep venous thrombosis. Caprini VTE Risk Assessment Caprini VTE Risk Assessment: Moderate/High Risk (score >= 2) Caprini Risk Assessment Model: Point Value = 1 Point Value = 2 Point Value = 3 Point Value = 5 Age 41-60 Minor surgery BMI > 25 kg/m2 Swollen legs Varicose veins or History of unexplained or recurrent spontaneous Oral contraceptives or hormone replacement Sepsis (< 1 month) Serious lung disease, including pneumonia (< 1 month) Abnormal pulmonary function Acute myocardial infarction Congestive heart failure (< 1 month) History of inflammatory bowel disease Medical patient at bed rest Age 61-74 Arthroscopic surgery Major open surgery (> 45 min) Laparoscopic surgery (> 45 min) Malignancy Confined to bed (> 72 hours) Immobilizing plaster cast Central venous access Age >= 75 History of VTE Family history of VTE Factor V Leiden Prothrombin [id number] Lupus anticoagulant Anticardiolipin antibodies Elevated serum homocysteine Heparin-induced thrombocytopenia Other congenital or acquired thrombophilia Stroke (< 1 month) Elective arthroplasty Hip, pelvis, or leg fracture Acute spinal cord injury (< 1 month) Prophylaxis Regimen: Total Risk Factor Score Risk Level Prophylaxis Regimen 0-1 Low Early ambulation 2 Moderate Order ONE of the following: *Sequential Compression Device (SCD) *Heparin 5000 units SQ BID 3-4 Higher Order ONE of the following medications: *Heparin 5000 units SQ TID *Enoxaparin/Lovenox 40 mg SQ daily (WT < 150 kg, CrCl > 30 mL/min) *Enoxaparin/Lovenox 30 mg SQ daily (WT < 150 kg, CrCl > 10-29 mL/min) *Enoxaparin/Lovenox 30 mg SQ BID (WT < 150 kg, CrCl > 30 mL/min) AND/OR *Sequential Compression Device (SCD) 5 or more Highest Order ONE of the following medications: *Heparin 5000 units SQ TID (Preferred with Epidurals) *Enoxaparin/Lovenox 40 mg SQ daily (WT < 150 kg, CrCl > 30 mL/min) *Enoxaparin/Lovenox 30 mg SQ daily (WT < 150 kg, CrCl > 10-29 mL/min) *Enoxaparin/Lovenox 30 mg SQ BID (WT < 150 kg, CrCl > 30 mL/min) AND *Sequential Compression Device (SCD) Assessment and Plan - Assessment (1) CHF (congestive heart failure) Code(s): I50.9 - Heart failure, unspecified Status: Acute Plan: 1. chf. Pt with hx mild systolic chf. presents with sob and worsening lower extemity edema x 2 days Her last echo 2014 with EF 45%. will order 2d echo place monitoring manager to assure controlled afib iv lasix is given x 1 now and will recheck her bmp in AM and decide on subsequent dosing. monitor output cont coumadin and cardizem. inr pending. 2. htn. pt with severely elevated bp in ED labetolol given will resume her home medication and give prn clonidine. 3. hx afib with embolic cva cardizem and coumadin. inr pending. (2) CVA (cerebral vascular accident) Code(s): I63.9 - Cerebral infarction, unspecified Status: Chronic (3) Afib Code(s): I48.91 - Unspecified atrial fibrillation Status: Chronic
[2017-10-26 17:39] LABS: INR 3.3 Ratio; Prothrombin Time 33.7 sec (9.8-11.6)
--- NOTE | 2017-10-27 11:51 | XR ---
EXAM DATE: 10/27/2017 11:32 AM EDT AGE/SEX: 82 years / Female INDICATIONS: Shortness of breath. Cardiomegaly CLINICAL DATA: This is the patient's subsequent encounter. Patient reports that signs and symptoms h ave been present for 3 days and indicates a pain score of 0/10. MEDICAL/SURGICAL HISTORY: . Congestive heart failure. Hypertension. CVA, Irregular Heart Beat, TB . Tonsillectomy. Hysterectomy. COMPARISON: [facility] [place]ST 1V SINGLE AP, 10/26/2017. . FINDINGS: AP and lateral views of the chest demonstrate cardiac silhouette size at the upper limits for normal. EKG lines overlie the patient. No pleural effusion, airspace consolidation, or pneumothorax is ident ified. There is mild atelectasis at the lung bases. The bones demonstrate no acute finding. There are degenerative changes of the thoracic spine. Calcification is present within the abdominal aorta with a rim-like calcified structure measuring 2.2 cm overlying the upper abdomen and only visualized on t he lateral projection. CONCLUSION: Atelectasis at the lung bases. Otherwise, no acute pulmonary finding is identified. Cardiac silhouett e size remains at the upper limits for normal. Electronically signed by: Darius Trinidad MD 10/27/2017 11:50 AM EDT
[2017-10-27 14:36] LABS: Baso % (Auto) 0.3 % (0.0-2.0); Eos # (Auto) 0.1 th/mm3 (0.0-0.4); Eos % (Auto) 2.8 % (0.0-4.0); Hematocrit 42.4 % (35.0-46.0); Lymph # (Auto) 0.8 th/mm3 (1.0-4.8); Lymph % (Auto) 17.1 % (9.0-44.0); Mean Corpuscular HGB Conc 32.9 % (32.0-36.0); Mean Corpuscular Hemoglobin 33.1 pg (27.0-34.0); Mean Corpuscular Volume 100.4 fL (80.0-100.0); Mean Platelet Volume 7.8 fL (7.0-11.0); Mono # (Auto) 0.5 th/mm3 (0.0-0.9); Mono % (Auto) 10.8 % (0.0-8.0); Neut # (Auto) 3.4 th/mm3 (1.8-7.7); Platelet Count 241 th/mm3 (150-450); Red Blood Count 4.22 mil/mm3 (4.00-5.30); Red Cell Distribution Width 14.4 % (11.6-17.2); White Blood Count 4.9 th/mm3 (4.0-11.0)
[2017-10-27 14:42] LABS: INR 2.7 Ratio; Prothrombin Time 27.3 sec (9.8-11.6)
--- NOTE | 2017-10-27 14:44 | P.PNIM ---
Subjective Interval history: Pt reports that she does not feel that the swelling is significantly better today She did walk 30' with PT this morning. BP is stable. Physical Exam Vital signs: Vital Signs 10/26/17 17:11 10/26/17 20:00 10/27/17 00:00 Temperature 98.0 F 97.4 F L Pulse Rate 97 H 89 78 Respiratory Rate 22 18 18 Blood Pressure 161/74 H 163/94 H 115/64 Pulse Oximetry 95 93 L 94 L 10/27/17 04:00 10/27/17 08:00 Temperature 97.6 F Pulse Rate 78 97 H Respiratory Rate 18 Blood Pressure 148/88 H Pulse Oximetry 96 Intake & Output 10/26/17 10/27/17 10/27/17 18:59 06:59 18:59 Weight 122.1 kg 122.5 kg Other: Weight On Admission 122.1 kg Narrative: GENERAL: AAOx3 CARDIO: Regular RESP: Breath sounds equal bilaterally. ABD: +BS, soft, non-tender, nondistended. EXT: Bilateral LE pitting edema to the upper thighs, venous stasis skin changes in bilateral LE - Urinary Catheter Management Female External Cath placed during this visit: no Reason for continuing: Not indwelling catheter Results - Labs CBC & Chem 7: 10/29/17 06:31 10/29/17 06:31 Laboratory Results - last 24 hr 10/26/17 10/26/17 10/26/17 13:26 13:26 17:08 PT 33.7 H INR 3.3 Sodium 143 Potassium 4.2 Chloride 104 Carbon Dioxide 28.8 Anion Gap 10 BUN 20 H Creatinine 0.72 Estimated GFR 77 L Random Glucose 85 Calcium 9.1 Total Bilirubin 0.6 AST 20 ALT 12 Alkaline Phosphatase 139 H Troponin I Less than 0.02 L B-Natriuretic Peptide 129 H Total Protein 6.8 Albumin 3.3 L Microbiology 10/26/17 13:57 Clean Catch Urine Urine Culture - Preliminary Immature growth - reincubate - Imaging Impressions Chest X-Ray 10/26/17 13:06 CONCLUSION: Cardiomegaly. No acute pulmonary disease. Venous Doppler Study 10/26/17 13:06 CONCLUSION: No evidence of deep venous thrombosis. Chest X-Ray 10/27/17 00:00 CONCLUSION: Atelectasis at the lung bases. Otherwise, no acute pulmonary finding is identified. Cardiac silhouette size remains at the upper limits for normal. Assessment and Plan - Assessment (1) CHF (congestive heart failure) Code(s): I50.9 - Heart failure, unspecified Status: Acute Plan: CHF - Pt with hx mild systolic CHF who presented to the ED at [facility] [place] from [facility] on 10/25/17 with SOB and worsening lower extremity edema x 2 days - Her last echo in 2014 with EF 45%. - Chest X-Ray (10/26/17) --> Cardiomegaly. No acute pulmonary disease. - Venous Doppler Study (10/26/17) -->No evidence of deep venous thrombosis. - Echocardiogram (10/27) --> 45% - Pt was given a dose if IV Lasix 20mg in the ED and repeat dosage was held until we had repeat labs for today but lab drawn was delayed until the afternoon on 10/27/17 - Telemetry in place - Chest X-Ray (10/27/17) --> Atelectasis at the lung bases. Otherwise, no acute pulmonary finding is identified. Cardiac silhouette size remains at the upper limits for normal. - Monitor I&Os - Cont. Cardizem. - PT evaluated today and recommending continued rehab at SNF upon discharge. HTN - Pt with severely elevated bp in ED - Pt was given Labetalol in the ED - She was resumed on her home medication, Cardizem, and give prn clonidine. - BP is stable on 10/27 Hx of A. fib with embolic CVA - Cont. Cardizem - INR was 3.3 on 10/26 so Coumadin was held - Awaiting repeat INR on 10/27 to decide about continuation of Coumadin. (2) CVA (cerebral vascular accident) Code(s): I63.9 - Cerebral infarction, unspecified Status: Chronic (3) Afib Code(s): I48.91 - Unspecified atrial fibrillation Status: Chronic (4) Edema Code(s): R60.9 - Edema, unspecified Status: Acute (5) Hypertensive urgency Code(s): I16.0 - Hypertensive urgency Status: Acute - Attending Attestation Patient examined. Assessment and plan formulated with Mikayla Stephens PA-C. I agree with the above.
[2017-10-27 15:03] LABS: Albumin 3.4 g/dL (3.4-5.0); Anion Gap 7 meq/L (5-15); Aspartate Aminotransferase 23 U/L (15-37); Blood Urea Nitrogen 15 mg/dL (7-18); Calcium 9.5 mg/dL (8.5-10.1); Carbon Dioxide 33.1 meq/L (21.0-32.0); Chloride 103 meq/L (98-107); Glomerular Filtration Rate 77 mL/min (>89); Glucose,Random 86 mg/dL (74-106); Sodium 143 meq/L (136-145)
[2017-10-27 15:04] LABS: Alanine Aminotransferase 14 U/L (10-53)
[2017-10-27 15:05] LABS: Alkaline Phosphatase 144 U/L (45-117); Total Protein 7.1 g/dL (6.4-8.2)
[2017-10-27] MEDS: dilTIAZem CD 120 MG Capsule PO SCH (17:38)
--- NOTE | 2017-10-27 18:54 | ECG ---
Date Performed: 10/26/2017 Time Performed: 13:44:55 PTAGE: 82 years EKG: ATRIAL FIBRILLATION NONSPECIFIC T-WAVE ABNORMALITY ABNORMAL RHYTHM ECG Compared to PREVIOUS TRACING , left bundle branch block is no longer seen. PREVIOUS TRACIN12/22/19 17 23.56 DOCTOR: Jean Reno Interpretating Date/Time 10/27/2017 18:53:10
[2017-10-28 09:49] LABS: Baso % (Auto) 0.6 % (0.0-2.0); Eos # (Auto) 0.2 th/mm3 (0.0-0.4); Eos % (Auto) 3.9 % (0.0-4.0); Hematocrit 41.1 % (35.0-46.0); Hemoglobin 13.6 gm/dL (11.6-15.3); Lymph # (Auto) 1.1 th/mm3 (1.0-4.8); Lymph % (Auto) 24.1 % (9.0-44.0); Mean Corpuscular HGB Conc 33.1 % (32.0-36.0); Mean Corpuscular Volume 99.5 fL (80.0-100.0); Mean Platelet Volume 8.6 fL (7.0-11.0); Mono # (Auto) 0.5 th/mm3 (0.0-0.9); Mono % (Auto) 11.5 % (0.0-8.0); Neut # (Auto) 2.6 th/mm3 (1.8-7.7); Neut % (Auto) 59.9 % (16.0-70.0); Platelet Count 226 th/mm3 (150-450); Red Blood Count 4.13 mil/mm3 (4.00-5.30); Red Cell Distribution Width 14.4 % (11.6-17.2); White Blood Count 4.4 th/mm3 (4.0-11.0)
[2017-10-28 10:05] LABS: INR 2.6 Ratio; Prothrombin Time 26.6 sec (9.8-11.6)
[2017-10-28 10:25] LABS: Anion Gap 10 meq/L (5-15); Blood Urea Nitrogen 15 mg/dL (7-18); Calcium 9.3 mg/dL (8.5-10.1); Chloride 104 meq/L (98-107); Glomerular Filtration Rate Greater Than 89 mL/min (>89); Glucose,Random 82 mg/dL (74-106); Potassium 3.6 meq/L (3.5-5.1); Sodium 145 meq/L (136-145)
--- NOTE | 2017-10-28 14:38 | P.PNIM ---
Subjective Interval history: Pt upset because her external urinary catheter is leaking periodically She has been diuresing well,. she has recorded out a negative balance of about 2600mL Denies any chest pain, SOB or palpitations. Physical Exam Vital signs: Vital Signs 10/27/17 16:00 10/27/17 20:00 10/27/17 20:30 Temperature 97.6 F 97.7 F Pulse Rate 89 88 80 Respiratory Rate 18 18 Blood Pressure 148/81 H 131/67 Pulse Oximetry 95 94 L 10/27/17 23:40 10/28/17 00:00 10/28/17 04:00 Temperature 98.4 F 97.7 F Pulse Rate 89 93 H 93 H Respiratory Rate 20 18 Blood Pressure 139/77 140/81 Pulse Oximetry 94 L 93 L 10/28/17 04:05 10/28/17 08:00 10/28/17 08:08 Temperature 98.2 F Pulse Rate 90 81 90 Respiratory Rate 20 Blood Pressure 167/82 H Pulse Oximetry 92 L 10/28/17 12:00 Temperature 98.4 F Pulse Rate 76 Respiratory Rate 20 Blood Pressure 141/75 H Pulse Oximetry 95 Intake & Output 10/27/17 10/28/17 10/28/17 18:59 06:59 18:59 Intake Total 1440 / 1440 Output Total 3000 / 3000 1000 / 1000 Balance -1560 / -1560 -1000 / -1000 Intake: Oral 1440 / 1440 Output: Urine 3000 / 3000 Urine Amount (Catheter) 1000 / 1000 Female External 1000 / 1000 Other: Date of Last Bowel Movement 10/27/17 10/27/17 # Bowel Movements 1 Narrative: GENERAL: AAOx3 CARDIO: Regular RESP: Breath sounds equal bilaterally. ABD: +BS, soft, non-tender, nondistended. EXT: Bilateral LE edema to the upper thighs improving, venous stasis skin changes in bilateral LE - Urinary Catheter Management Female External Cath placed during this visit: no Results - Labs CBC & Chem 7: 10/29/17 06:31 10/29/17 06:31 Laboratory Results - last 24 hr 10/27/17 10/27/17 10/27/17 13:59 13:59 13:59 WBC 4.9 RBC 4.22 Hgb 14.0 Hct 42.4 MCV 100.4 H MCH 33.1 MCHC 32.9 RDW 14.4 Plt Count 241 MPV 7.8 Neut % (Auto) 69.0 Lymph % (Auto) 17.1 [place] % (Auto) 10.8 H Eos % (Auto) 2.8 Baso % (Auto) 0.3 Neut # (Auto) 3.4 Lymph # (Auto) 0.8 L [place] # (Auto) 0.5 Eos # (Auto) 0.1 Baso # (Auto) 0.0 WBC Differential . Differential Comment Auto diff final PT 27.3 H INR 2.7 Sodium 143 Potassium 4.0 Chloride 103 Carbon Dioxide 33.1 H Anion Gap 7 BUN 15 Creatinine 0.72 Estimated GFR 77 L Random Glucose 86 Calcium 9.5 Total Bilirubin 0.6 AST 23 ALT 14 Alkaline Phosphatase 144 H Total Protein 7.1 Albumin 3.4 10/28/17 10/28/17 10/28/17 07:49 07:49 07:49 WBC 4.4 RBC 4.13 Hgb 13.6 Hct 41.1 MCV 99.5 MCH 33.0 MCHC 33.1 RDW 14.4 Plt Count 226 MPV 8.6 Neut % (Auto) 59.9 Lymph % (Auto) 24.1 [place] % (Auto) 11.5 H Eos % (Auto) 3.9 Baso % (Auto) 0.6 Neut # (Auto) 2.6 Lymph # (Auto) 1.1 [place] # (Auto) 0.5 Eos # (Auto) 0.2 Baso # (Auto) 0.0 WBC Differential . Differential Comment Auto diff final PT 26.6 H INR 2.6 Sodium 145 Potassium 3.6 Chloride 104 Carbon Dioxide 31.0 Anion Gap 10 BUN 15 Creatinine 0.62 Estimated GFR Greater than 89 Random Glucose 82 Calcium 9.3 Total Bilirubin AST ALT Alkaline Phosphatase Total Protein Albumin Microbiology 10/26/17 13:57 Clean Catch Urine Urine Culture - Final 50-100,000 cfu/mL mixed gram positive maxwell (probable contaminants) - Imaging Chest X-Ray 10/26/17 13:06 CONCLUSION: Cardiomegaly. No acute pulmonary disease. Venous Doppler Study 10/26/17 13:06 CONCLUSION: No evidence of deep venous thrombosis. Chest X-Ray 10/27/17 00:00 CONCLUSION: Atelectasis at the lung bases. Otherwise, no acute pulmonary finding is identified. Cardiac silhouette size remains at the upper limits for normal. Assessment and Plan - Assessment (1) CHF (congestive heart failure) Code(s): I50.9 - Heart failure, unspecified Status: Acute Plan: CHF - Pt with hx mild systolic CHF who [place] [facility] [place] [facility] on 10/25/17 with SOB and worsening lower extremity edema x 2 days - Her last echo in 2014 with EF 45%. - Chest X-Ray (10/26/17) --> Cardiomegaly. No acute pulmonary disease. - Venous Doppler Study (10/26/17) --> No evidence of deep venous thrombosis. - Repeat 2D echo is pending. - Pt was given a dose if IV Lasix 20mg in the ED and repeat labs on 10/27 with stable renal function - Pt continued on Lasix 20mg BID on 10/27 - Repeat labs on 10/28 with continued stable renal function and diuresing well on I&Os - Telemetry - Chest X-Ray (10/27/17) --> Atelectasis at the lung bases. Otherwise, no acute pulmonary finding is identified. Cardiac silhouette size remains at the upper limits for normal. - Monitor I&Os - Cont. Cardizem. - PT evaluated and recommending continued rehab at SNF upon discharge. HTN - Pt with severely elevated bp in ED - Pt was given Labetalol in the ED - She was resumed on her home medication, Cardizem, and give prn clonidine. - BP is stable Hx of A. fib with embolic CVA - Cont. Cardizem - INR was 3.3 on 10/26 so Coumadin was held - Repeat INR on 10/27 was 2.7 and pt continued on Coumadin 5mg po daily - Monitor INR daily (2) CVA (cerebral vascular accident) Code(s): I63.9 - Cerebral infarction, unspecified Status: Chronic (3) Afib Code(s): I48.91 - Unspecified atrial fibrillation Status: Chronic (4) Edema Code(s): R60.9 - Edema, unspecified Status: Acute (5) Hypertensive urgency Code(s): I16.0 - Hypertensive urgency Status: Acute - Plan Patient examined. Assessment and plan formulated with Mikayla Stephens PA-C. I agree with the above. Pt is clinically improving. LEs are less edematous. Continue IV lasix for now Repeat BMP in AM Pt/son (by phone) were updated. All questions answered to the best of my ability.
[2017-10-28] MEDS: dilTIAZem CD 120 MG Capsule PO SCH (18:47)
[2017-10-29 07:05] LABS: Baso % (Auto) 0.4 % (0.0-2.0); Eos # (Auto) 0.2 th/mm3 (0.0-0.4); Eos % (Auto) 4.1 % (0.0-4.0); Hematocrit 39.3 % (35.0-46.0); Hemoglobin 13.2 gm/dL (11.6-15.3); Lymph # (Auto) 1.2 th/mm3 (1.0-4.8); Lymph % (Auto) 24.8 % (9.0-44.0); Mean Corpuscular HGB Conc 33.6 % (32.0-36.0); Mean Corpuscular Hemoglobin 33.4 pg (27.0-34.0); Mean Corpuscular Volume 99.4 fL (80.0-100.0); Mean Platelet Volume 8.2 fL (7.0-11.0); Mono # (Auto) 0.5 th/mm3 (0.0-0.9); Mono % (Auto) 11.5 % (0.0-8.0); Neut # (Auto) 2.8 th/mm3 (1.8-7.7); Neut % (Auto) 59.2 % (16.0-70.0); Platelet Count 223 th/mm3 (150-450); Red Blood Count 3.95 mil/mm3 (4.00-5.30); Red Cell Distribution Width 14.8 % (11.6-17.2); White Blood Count 4.7 th/mm3 (4.0-11.0)
[2017-10-29 07:09] LABS: INR 2.7 Ratio; Prothrombin Time 27.7 sec (9.8-11.6)
[2017-10-29 07:29] LABS: Calcium 8.7 mg/dL (8.5-10.1); Potassium 3.6 meq/L (3.5-5.1)
--- NOTE | 2017-10-29 17:17 | ECHRPT ---
Indication: CONCLUSIONS Normal left ventricular size. Mild concentric left ventricular hypertrophy. The left ventricular systolic function is moderately reduced with an estimated ejection fraction in the range of 40-45%. The left atrial size is moderately dilated. Mitral annular calcification is present. Trace mitral valve regurgitation. Aortic valve sclerosis is present. There is trace tricuspid valve regurgitation. The estimated pulmonary arterial pressure is 35mmHg. The pulmonary valve is not well visualized. BP: / HR: Rhythm: Technical Quality: FINDINGS LEFT VENTRICLE Normal left ventricular size. Mild concentric left ventricular hypertrophy. The left ventricular systolic function is moderately reduced with an estimated ejection fraction in the range of 40-45%. RIGHT VENTRICLE Normal right ventricular size and systolic function. LEFT ATRIUM The left atrial size is moderately dilated. RIGHT ATRIUM The right atrial size is normal. ATRIAL SEPTUM Normal atrial septal thickness without atrial level shunting by limited color doppler interrogation. AORTA The aortic root and proximal ascending aorta are normal in size on limited imaging. MITRAL VALVE Mitral annular calcification is present. Trace mitral valve regurgitation. AORTIC VALVE Aortic valve sclerosis is present. TRICUSPID VALVE There is trace tricuspid valve regurgitation. The estimated pulmonary arterial pressure is 35mmHg. PULMONARY VALVE The pulmonary valve is not well visualized. VESSELS The inferior vena cava is normal in size. PERICARDIUM No pericardial effusion. Waldemar Joseph MD, FACC (Electronically Signed) Final Date:29 October 2017 17:16
--- NOTE | 2017-10-29 17:51 | P.PNIM ---
Subjective Interval history: No new complaints. Physical Exam Vital signs: Vital Signs 10/28/17 20:00 10/28/17 21:40 10/29/17 00:00 Temperature 98.2 F 97.5 F L Pulse Rate 82 90 89 Respiratory Rate 18 18 Blood Pressure 134/99 H Pulse Oximetry 92 L 95 10/29/17 00:30 10/29/17 03:55 10/29/17 04:00 Temperature 97.5 F L Pulse Rate 79 77 85 Respiratory Rate 18 Blood Pressure 149/88 H Pulse Oximetry 93 L 10/29/17 08:00 10/29/17 09:00 10/29/17 12:00 Temperature 96.6 F L 96.9 F L Pulse Rate 79 79 88 Respiratory Rate 17 17 Blood Pressure 150/89 H 114/75 Pulse Oximetry 94 L 94 L 10/29/17 16:00 Temperature 97.7 F Pulse Rate 92 H Respiratory Rate 18 Blood Pressure 119/86 Pulse Oximetry 93 L Intake & Output 10/28/17 10/29/17 10/29/17 18:59 06:59 18:59 Intake Total 720 / 720 Output Total 650 / 650 420 / 420 Balance 70 / 70 -420 / -420 Weight 116.7 kg Intake: Oral 720 / 720 Output: Urine 650 / 650 Urine Amount (Catheter) 420 / 420 Female External 420 / 420 Other: Date of Last Bowel Movement 10/27/17 10/28/17 # Bowel Movements 2 Narrative: GENERAL: This is a well-nourished, well-developed patient, in no apparent distress. CARDIOVASCULAR: Regular rate and rhythm without murmurs, gallops, or rubs. RESPIRATORY: Clear to auscultation. Breath sounds equal bilaterally. No wheezes , rales, or rhonchi. GASTROINTESTINAL: Abdomen soft, non-tender, nondistended. Normal active bowel sounds MUSCULOSKELETAL: LE edema is much improved. NEURO: Alert & Oriented x4 to person, place, time, situation. Moves all ext x4 - Urinary Catheter Management Female External Cath placed during this visit: no Reason for continuing: Not indwelling catheter Results - Labs CBC & Chem 7: 10/29/17 06:31 10/29/17 06:31 - Imaging Chest X-Ray 10/26/17 13:06 CONCLUSION: Cardiomegaly. No acute pulmonary disease. Venous Doppler Study 10/26/17 13:06 CONCLUSION: No evidence of deep venous thrombosis. Chest X-Ray 10/27/17 00:00 CONCLUSION: Atelectasis at the lung bases. Otherwise, no acute pulmonary finding is identified. Cardiac silhouette size remains at the upper limits for normal. Assessment and Plan - Assessment (1) CHF (congestive heart failure) Code(s): I50.9 - Heart failure, unspecified Status: Acute Plan: CHF - Pt with hx mild systolic CHF who presented to the ED at [facility] [place] from [facility] on 10/25/17 with SOB and worsening lower extremity edema x 2 days - Her last echo in 2014 with EF 45%. - Chest X-Ray (10/26/17) --> Cardiomegaly. No acute pulmonary disease. - Venous Doppler Study (10/26/17) --> No evidence of deep venous thrombosis. - echocardiogram (10/27/17) EF 45% - Chest X-Ray (10/27/17) --> Atelectasis at the lung bases. Otherwise, no acute pulmonary finding is identified. Cardiac silhouette size remains at the upper limits for normal. - Pt received diuresis with IV lasix - Will discharge pt on lasix 20mg daily - Pt is quite hesitant about taking lasix after leaving the hospital & I tried to explain the importance of continued PO lasix therapy following discharge - Cont. Cardizem. - PT evaluated and recommending continued rehab at SNF upon discharge. - Pt adamantly refuses SNF & now ambulating in the hallways with her walker - I will order C and home PT - discharge to home in the AM - see discharge orders HTN - Pt with severely elevated bp in ED - Pt was given Labetalol in the ED - She was resumed on her home medication, Cardizem, and give prn clonidine. - BP is stable Hx of A. fib with embolic CVA - Cont. Cardizem - INR was 3.3 on 10/26 so Coumadin was held - Repeat INR on 10/27 was 2.7 and pt continued on Coumadin 5mg po daily - Monitor INR daily (2) CVA (cerebral vascular accident) Code(s): I63.9 - Cerebral infarction, unspecified Status: Chronic (3) Afib Code(s): I48.91 - Unspecified atrial fibrillation Status: Chronic (4) Edema Code(s): R60.9 - Edema, unspecified Status: Acute (5) Hypertensive urgency Code(s): I16.0 - Hypertensive urgency Status: Acute - Plan Patient examined. Assessment and plan formulated with Mikayla Stephens PA-C. I agree with the above. Pt is clinically improving. LEs are less edematous. Continue IV lasix for now Repeat BMP in AM Pt/son (by phone) were updated. All questions answered to the best of my ability.
--- NOTE | 2017-10-29 18:00 | P.DS ---
Date of admission: 10/26/17 16:36 Primary care physician: Cedrick Cox Attending physician on discharge: Deejay Bustamante Anticipated date of discharge: 10/30/17 Brief History from admission: Ms. James is an 82 y/o WF with A. fib on chronic anticoagulation with Coumadin, chf , hx of CVA with left LE weakness, HTN and hyperlipidemia. She presented to the ED at [facility] [place] on 10/08/17 with complaints of worsening pain in the right LE.. She was evaluated and found to have effusion which may have been hemarthrosis. Seen by ortho but no intervention and pt not interested in holding her coumadin. She was week and limited in ambulation and sent to [facility]. Pt now returns today complaining of increased sob, lower extremity edema and even possible swelling around her abdomen. She says it started about 2 days ago. She was given iv lasix here in ED. Past Medical History A. fib on chronic anticoagulation with Coumadin Nonischemic cardiomyopathy CHF with EF 45-50% in 2014 Hx of CVA with left LE weakness HTN Hyperlipidemia. Hx of rhabdomyolysis Degenerative joint disease Hx of lung nodules Past Surgical History Sclerotherapy for varicose veins Hysterectomy Family History Noncontributory Social History Denies any alcohol, tobacco or illicit drug use DS: Diagnosis - Discharge Diagnosis (1) CHF (congestive heart failure) Status: Acute (2) CVA (cerebral vascular accident) Status: Chronic (3) Afib Status: Chronic (4) Edema Status: Acute (5) Hypertensive urgency Status: Acute DS: Medications - Discharge Medications Prescriptions: furosemide [Lasix] 20 mg PO DAILY #30 tab DS: Summary Hospital Course: (1) CHF (congestive heart failure) Code(s): I50.9 - Heart failure, unspecified Status: Acute Plan: CHF - Pt with hx mild systolic CHF who presented to the ED at [facility] from [facility] on 10/25/17 with SOB and worsening lower extremity edema x 2 days - Her last echo in 2014 with EF 45%. - Chest X-Ray (10/26/17) --> Cardiomegaly. No acute pulmonary disease. - Venous Doppler Study (10/26/17) --> No evidence of deep venous thrombosis. - echocardiogram (10/27/17) EF 45% - Chest X-Ray (10/27/17) --> Atelectasis at the lung bases. Otherwise, no acute pulmonary finding is identified. Cardiac silhouette size remains at the upper limits for normal. - Pt received diuresis with IV lasix - Will discharge pt on lasix 20mg daily - Pt is quite hesitant about taking lasix after leaving the hospital & I tried to explain the importance of continued PO lasix therapy following discharge - Cont. Cardizem. - PT evaluated and recommending continued rehab at SNF upon discharge. - Pt adamantly refuses SNF & now ambulating in the hallways with her walker - I will order HHC and home PT - discharge to home in the AM - see discharge orders HTN - Pt with severely elevated bp in ED - Pt was given Labetalol in the ED - She was resumed on her home medication, Cardizem, and give prn clonidine. - BP is stable Hx of A. fib with embolic CVA - Cont. Cardizem - INR was 3.3 on 10/26 so Coumadin was held - Repeat INR on 10/27 was 2.7 and pt continued on Coumadin 5mg po daily - Monitor INR daily (2) CVA (cerebral vascular accident) Code(s): I63.9 - Cerebral infarction, unspecified Status: Chronic (3) Afib Code(s): I48.91 - Unspecified atrial fibrillation Status: Chronic (4) Edema Code(s): R60.9 - Edema, unspecified Status: Acute (5) Hypertensive urgency Code(s): I16.0 - Hypertensive urgency Status: Acute - Time Spent with Patient Total time spent providing and/or coordinating discharge services: Greater than 30 minutes Exam Vital signs: Vital Signs 10/28/17 20:00 10/28/17 21:40 10/29/17 00:00 Temperature 98.2 F 97.5 F L Pulse Rate 82 90 89 Respiratory Rate 18 18 Blood Pressure 134/99 H Pulse Oximetry 92 L 95 10/29/17 00:30 10/29/17 03:55 10/29/17 04:00 Temperature 97.5 F L Pulse Rate 79 77 85 Respiratory Rate 18 Blood Pressure 149/88 H Pulse Oximetry 93 L 10/29/17 08:00 10/29/17 09:00 10/29/17 12:00 Temperature 96.6 F L 96.9 F L Pulse Rate 79 79 88 Respiratory Rate 17 17 Blood Pressure 150/89 H 114/75 Pulse Oximetry 94 L 94 L 10/29/17 16:00 Temperature 97.7 F Pulse Rate 92 H Respiratory Rate 18 Blood Pressure 119/86 Pulse Oximetry 93 L Intake & Output 10/28/17 10/29/17 10/29/17 18:59 06:59 18:59 Intake Total 720 / 720 Output Total 650 / 650 420 / 420 Balance 70 / 70 -420 / -420 Weight 116.7 kg Intake: Oral 720 / 720 Output: Urine 650 / 650 Urine Amount (Catheter) 420 / 420 Female External 420 / 420 Other: Date of Last Bowel Movement 10/27/17 10/28/17 # Bowel Movements 2 Narrative: GENERAL: This is a well-nourished, well-developed patient, in no apparent distress. CARDIOVASCULAR: Regular rate and rhythm without murmurs, gallops, or rubs. RESPIRATORY: Clear to auscultation. Breath sounds equal bilaterally. No wheezes , rales, or rhonchi. GASTROINTESTINAL: Abdomen soft, non-tender, nondistended. Normal active bowel sounds MUSCULOSKELETAL: Extremities without clubbing, cyanosis, or edema. NEURO: Alert & Oriented x4 to person, place, time, situation. Moves all ext x4 Results Procedures completed during hospitalization: n/a Labs on day of discharge: Labs from last 24 hours 10/29/17 10/29/17 10/29/17 06:31 06:31 06:31 WBC 4.7 RBC 3.95 L Hgb 13.2 Hct 39.3 MCV 99.4 MCH 33.4 MCHC 33.6 RDW 14.8 Plt Count 223 MPV 8.2 Neut % (Auto) 59.2 Lymph % (Auto) 24.8 [place] % (Auto) 11.5 H Eos % (Auto) 4.1 H Baso % (Auto) 0.4 Neut # (Auto) 2.8 Lymph # (Auto) 1.2 [place] # (Auto) 0.5 Eos # (Auto) 0.2 Baso # (Auto) 0.0 WBC Differential . Differential Comment Auto diff final PT 27.7 H INR 2.7 Sodium 143 Potassium 3.6 Chloride 103 Carbon Dioxide 36.0 H Anion Gap 4 L BUN 18 Creatinine 0.88 Estimated GFR 61 L Random Glucose 94 Calcium 8.7 - Impressions ITS Impressions Venous Doppler Study 10/26/17 13:06 CONCLUSION: No evidence of deep venous thrombosis. Chest X-Ray 10/27/17 00:00 CONCLUSION: Atelectasis at the lung bases. Otherwise, no acute pulmonary finding is identified. Cardiac silhouette size remains at the upper limits for normal. Discharge Plan - Discharge Disposition Patient Disposition: /Home Health Service - Discharge Condition Condition: Stable - Discharge Order Discharge Orders: Discharge Order (Routine); Ordered 10/29/17 Ordered By: Deejay Bustamante - Discharge Details Anticipated Discharge Date: 10/30/17 - Physicians Team Primary Care Provider: Cedrick Cox Attending Provider: Supa Cordova
--- NOTE | 2017-10-29 18:11 | P.DCO ---
- Diagnosis (1) CHF (congestive heart failure) (2) CVA (cerebral vascular accident) (3) Afib (4) Edema - Physical Therapy Order: Evaluate and treat, Improve ambulation, Strength and gait training - Home Health Nursing Order: Medical education, Signs/symptoms of disease process, CHF education, Medication education-adverse effect, Nursing assessment with vital signs Instructions: Please obtain BMP, mag, INR on 10/31/17 and fax results to pt's PCP, Dr. Kushal Seo - Graduate Engineer Order: To evaluate: Living conditions/environment, Support services Order: To provide: Long range planning, Community services - Certification I have seen patient Lana James on 10/29/17. My clinical findings support the need for the requested home health care services because: Limited mobility due to disease progression, Deconditioned with increased weakness, Medication compliance is questionable, Limited ability to care for self, Need for psychosocial assistance, High risk of falls I certify that my clinical findings support that this patient is homebound because: Impaired cognitive ability/safety, Unsteady gait/balance, Unsafe to leave home unassisted, Need for psychosocial assistance, Unable to use public transportation, Poor cardiac reserve (1) CHF (congestive heart failure) Qualifiers: Heart failure type: systolic Heart failure chronicity: acute on chronic Qualified Code(s): I50.23 - Acute on chronic systolic (congestive) heart failure (2) CVA (cerebral vascular accident) Qualifiers: CVA mechanism: unspecified Qualified Code(s): I63.9 - Cerebral infarction, unspecified (3) Afib Qualifiers: Atrial fibrillation type: chronic Qualified Code(s): I48.2 - Chronic atrial fibrillation (4) Edema Qualifiers: Edema type: unspecified Qualified Code(s): R60.9 - Edema, unspecified
[2017-10-29] MEDS: dilTIAZem CD 120 MG Capsule PO SCH (18:55)
--- NOTE | 2017-10-30 14:10 | P.DCO ---
- Home Health Nursing Order: Medical education, Signs/symptoms of disease process, CHF education, Medication education-adverse effect, Nursing assessment with vital signs - Pay Station Collector Order: To evaluate: Living conditions/environment, Support services Order: To provide: Long range planning, Community services - Certification I have seen patient Lana James on 10/30/17. My clinical findings support the need for the requested home health care services because: Deconditioned with increased weakness, Medication compliance is questionable, Limited ability to care for self, Need for psychosocial assistance I certify that my clinical findings support that this patient is homebound because: Unsafe to leave home unassisted, Non-ambulatory: confined to bed or chair, Unable to use public transportation
== END 2017-10-30 15:55 | disposition home health service (06) ==
LOC: NEPC 12:55 → NEDA 16:36 → N04 17:51
PROVIDERS: ADMIT Hospitalist; ATTEND Hospitalist

== ENCOUNTER 2018-05-25 22:27 | Observation (INO) ==
[2018-05-25] MEDS ORDERED: Morphine Inj 4 MG/ML Vial IV.PUSH ONE (22:59)
--- NOTE | 2018-05-25 23:17 | XR ---
EXAM DATE: 05/25/2018 11:07 PM EST AGE/SEX: 82 years / Female INDICATIONS: Shortness of breath. CLINICAL DATA: This is the patient's initial encounter. Patient reports that signs and symptoms have been present for 1 day and indicates a pain score of 0/10. MEDICAL/SURGICAL HISTORY: Congestive heart failure. Hypertension. None. COMPARISON: [facility] [place], CHEST 2V PA&LAT, 10/27/2017. . FINDINGS: Cardiac enlargement and diffuse fine interstitial prominence similar to prior. Minimal stable focal p arenchymal opacity at the left base may be slight scarring. No significant effusion. CONCLUSION: No significant change Electronically signed by: Darius Hernandez MD Board Certified Radiologist 05/25/2018 11:15 PM EST
[2018-05-25 23:20] LABS: Baso % (Auto) 0.6 % (0.0-2.0); Eos # (Auto) 0.2 th/mm3 (0.0-0.4); Eos % (Auto) 2.2 % (0.0-4.0); Hematocrit 39.3 % (35.0-46.0); Hemoglobin 13.1 gm/dL (11.6-15.3); Lymph % (Auto) 13.8 % (9.0-44.0); Mean Corpuscular HGB Conc 33.3 % (32.0-36.0); Mean Corpuscular Hemoglobin 32.6 pg (27.0-34.0); Mean Platelet Volume 7.5 fL (7.0-11.0); Mono # (Auto) 0.8 th/mm3 (0.0-0.9); Neut # (Auto) 4.9 th/mm3 (1.8-7.7); Neut % (Auto) 71.4 % (16.0-70.0); Platelet Count 256 th/mm3 (150-450); Red Blood Count 4.01 mil/mm3 (4.00-5.30); Red Cell Distribution Width 15.2 % (11.6-17.2); White Blood Count 6.9 th/mm3 (4.0-11.0)
--- NOTE | 2018-05-25 23:32 | ED ---
HPI General Chief complaint: Extremity Problem,Nontraumatic Stated complaint: Medical Time Seen by Provider: 05/25/18 22:35 Source: patient and EMS Mode of arrival: EMS Limitations: no limitations History of Present Illness HPI Narrative: 82-year-old female that presents to the ED for evaluation of lower leg edema and pain. Per patient has left-sided leg pain. She also states having swelling. History of CHF per patient. History of CVA with left- sided deficits. History of A. fib and supposedly taking Coumadin. She states that the pain in the left leg has caused her significant discomfort which prompted evaluation here. Patient apparently uses a walker to get about but cannot ambulate anymore. Per patient the pain is 10 out of 10 but is hard to get a number from her. She also states that she has pain on her chest and feels like a pressure. Per patient she takes Lasix but this was lower because she could not take the urination. She denies any other medical issues. It is somewhat difficult to get a good history from her as she appears to be in some pain. Related Data Home Medications Medication Instructions Recorded Confirmed diltiazem HCl 120 mg PO DAILY 10/26/17 05/25/18 zarmupopdcxx-kwssnqlf-[id number] 1 tab PO DAILY 10/26/17 05/25/18 warfarin 5 mg PO DAILY 10/26/17 05/25/18 amoxicillin 500 mg PO BID 05/25/18 05/25/18 furosemide [Lasix] 40 mg PO DAILY 05/25/18 05/25/18 Allergies Allergy/AdvReac Type Severity Reaction Status Date / Time Penicillins Allergy Severe Abdominal Verified 05/25/18 22:37 Pain Review of Systems ROS: all other systems reviewed are negative [facility] Medical History Medical History Atrial fibrillation (Acute) CHF (congestive heart failure) (Acute) History of hysterectomy (Acute) Stroke (Acute) Social History Social History Substance History: No History of Abuse Second Hand Smoke Exposure: No Smoking Status: Never smoker How Often Do You Have a Drink Containing Alcohol: Never Recent Travel in [facility] within the Last 8 Weeks: No Recent Out of Country Travel within the Last 8 Weeks: No Immunization History Tetanus Immunization: Unsure Exam Narrative Exam Narrative: GENERAL: Well-appearing but in some distress. SKIN: Focused skin assessment warm/dry. HEAD: Atraumatic. Normocephalic. EYES: Pupils equal and round. No scleral icterus. No injection or drainage. ENT: No nasal bleeding or discharge. Mucous membranes pink and moist. Tongue is midline. No uvula deviation. NECK: Trachea midline. No JVD. CARDIOVASCULAR: Regular rate and rhythm. No murmur appreciated. RESPIRATORY: No accessory muscle use. Clear to auscultation. Breath sounds equal bilaterally. GASTROINTESTINAL: Abdomen soft, non-tender, mildly distended distended. Hepatic and splenic margins not palpable. MUSCULOSKELETAL: No obvious deformities. No clubbing. No cyanosis. Full range of motion of the upper and lower extremities bilaterally. 2+ pulses bilaterally. Patient does have 2+ pitting edema in the lower extremities with redness noted bilaterally with left leg pain. Hard to assess the leg for pain secondary to the patient having a little discomfort. NEUROLOGICAL: Awake and alert. No obvious cranial nerve deficits. Motor grossly within normal limits. Normal speech. PSYCHIATRIC: Appropriate mood and affect; insight and judgment normal. Course Initial Documented Vital Signs Temperature 97.8 F 05/25/18 22:42 Pulse Rate 82 05/25/18 22:42 Respiratory Rate 19 05/25/18 22:42 Blood Pressure 174/47 H 05/25/18 22:42 Pulse Oximetry 98 05/25/18 22:42 Last Documented Vital Signs Temperature 97.8 F 05/27/18 20:00 Pulse Rate 91 H 05/27/18 20:00 Respiratory Rate 16 05/27/18 20:00 Blood Pressure 141/68 H 05/27/18 20:00 Pulse Oximetry 91 L 05/27/18 20:00 Medical Decision Making ROMAN Attestation ROMAN supervised visit: Yes Attestation: Patient has a penicillin allergy however states she is currently taking amoxicillin Kisha, Dr. Lord, have reviewed the advance practice practitioner's documentation and am in agreement, met with the patient face to face, made the diagnosis, and the medical decision making was done by me. *My assessment and Findings: The patient is 82 years old and has a history of CHF, stroke, A. fib, bilateral lower extremity lymphedema chronic in nature, hypertension and reports taking Coumadin daily. She arrives due to pain and swelling in the abdomen which makes it hard to breathe. She reports on the way to the ER the ambulance was very uncomfortable for her and she injured the right hip while on the stretcher. ALESSIO David initially evaluated the patient with a plan to admit the patient due to inability to ambulate. Normally the patient can ambulate at home with a walker. CT abdomen pelvis added on to assess potential etiologies for pain. The patient refused a lower extremity ultrasound siting known history of chronic lymphedema. Patient aware that if DVT is not 100% excluded. CT abdomen pelvis loss OF the right hip. Patient refused pain medication although did enter rate complaints of pain several times not limited to the thickness of the ED mattress. CT of the abdomen pelvis revealed cholelithiasis with sludge. A right upper quadrant ultrasound was added on after at least 15 or 20 minutes of discussion with the patient who is very cantankerous and adamant against performing the study. Right upper quadrant ultrasound shows gallbladder sludge and stones. I spoke with the radiologist who is worried for cholecystitis. Patient reports a penicillin allergy however is evidently taking amoxicillin for a dental infection. Cipro and Flagyl added. Abdomen is soft with minimal generalized tenderness. Patient reports she is a [facility] patient. The EMR demonstrates possible hospice status however the patient states that a visiting nurse comes to the house twice a week to do laundry and does nothing more. Call was placed to the hospitalist service at approximately 4:[address] Wagoner at 550AM. [facility] was notified and they reported to place the admission and that they would send a social services director to perform a revocation later this morning. [facility] Narrative Medical decision making narrative: 82-year-old female who presents to the ED for evaluation of lower leg edema and pain. Patient was properly examined and was found to have signs and symptoms consistent with CHF versus DVT. Labs and imaging were ordered. Labs and imaging pending of the writing of this note. Case will be signed out to my attending Dr lord pending disposition and plan. Medical Screen Exam Complete: Yes Emergency Medical Condition: Yes Differential Diagnosis Differential Diagnosis: CHF exacerbation versus DVT versus leg pain versus chronic edema versus noncompliant versus ACS Medical Records Medical records reviewed: Yes I reviewed the patient's medical records. Lab Data Lab results reviewed: Yes I reviewed the patient's lab results. Result diagrams: 05/27/18 12:02 05/27/18 12:02 Lab Results 05/25/18 05/25/18 05/25/18 Range/Units 23:00 23:00 23:00 WBC 6.9 (4.0-11.0) th/mm3 RBC 4.01 (4.00-5.30) mil/mm3 Hgb 13.1 (11.6-15.3) gm/dL Hct 39.3 (35.0-46.0) % MCV 98.0 (80.0-100.0) fL MCH 32.6 (27.0-34.0) pg MCHC 33.3 (32.0-36.0) % RDW 15.2 (11.6-17.2) % Plt Count 256 (150-450) th/mm3 MPV 7.5 (7.0-11.0) fL Neut % (Auto) 71.4 H (16.0-70.0) % Lymph % (Auto) 13.8 (9.0-44.0) % [place] % (Auto) 12.0 H (0.0-8.0) % Eos % (Auto) 2.2 (0.0-4.0) % Baso % (Auto) 0.6 (0.0-2.0) % Neut # (Auto) 4.9 (1.8-7.7) th/mm3 Lymph # (Auto) 1.0 (1.0-4.8) th/mm3 [place] # (Auto) 0.8 (0.0-0.9) th/mm3 Eos # (Auto) 0.2 (0.0-0.4) th/mm3 Baso # (Auto) 0.0 (0.0-0.2) th/mm3 WBC Differential . Differential Comment Auto diff final PT 39.6 H (9.8-11.6) sec INR 3.9 Ratio APTT 43.3 H (23.4-31.7) sec Sodium 141 (136-145) meq/L Potassium 3.8 (3.5-5.1) meq/L Chloride 102 (98-107) meq/L Carbon Dioxide 34.0 H (21.0-32.0) meq/L Anion Gap 5 (5-15) meq/L BUN 17 (7-18) mg/dL Creatinine 0.72 (0.50-1.00) mg/dL Estimated GFR 77 L (>89) mL/min Random Glucose 102 (74-106) mg/dL Calcium 8.4 L (8.5-10.1) mg/dL Magnesium 2.2 (1.5-2.5) mg/dL Total Bilirubin 0.5 (0.2-1.0) mg/dL AST 27 (15-37) U/L ALT 17 (10-53) U/L Alkaline Phosphatase 151 H (45-117) U/L Total Creatine Kinase 105 (26-192) U/L CK-MB (CK-2) 3.0 (0.5-3.6) ng/mL Troponin I Less than 0.02 L (0.02-0.05) ng/mL B-Natriuretic Peptide (0-100) pg/mL Total Protein 7.0 (6.4-8.2) g/dL Albumin 3.5 (3.4-5.0) g/dL Lipase (73-393) U/L Urine Color (Yellw/Straw) Urine Clarity (Clear) Urine pH (5.0-8.5) Ur Specific [place] (1.002-1.035) Urine Protein (Neg-Trace) mg/dL Urine Glucose (UA) (Negative) mg/dL Urine Ketones (Negative) mg/dL Urine Occult Blood (Negative) Urine Nitrate (Negative) Urine Bilirubin (Negative) Urine Urobilinogen (Less than 2) mg/dL Ur Leukocyte Esterase (Negative) Urine WBC (0-5) /hpf Ur Squamous Epith Cells (0-5) /hpf Urine Bacteria (None) /hpf Micro UA Comment Ur Microscopic Review Urine Culture Comments 05/25/18 05/25/18 05/26/18 Range/Units 23:00 23:00 01:15 WBC (4.0-11.0) th/mm3 RBC (4.00-5.30) mil/mm3 Hgb (11.6-15.3) gm/dL Hct (35.0-46.0) % MCV (80.0-100.0) fL MCH (27.0-34.0) pg MCHC (32.0-36.0) % RDW (11.6-17.2) % Plt Count (150-450) th/mm3 MPV (7.0-11.0) fL Neut % (Auto) (16.0-70.0) % Lymph % (Auto) (9.0-44.0) % [place] % (Auto) (0.0-8.0) % Eos % (Auto) (0.0-4.0) % Baso % (Auto) (0.0-2.0) % Neut # (Auto) (1.8-7.7) th/mm3 Lymph # (Auto) (1.0-4.8) th/mm3 [place] # (Auto) (0.0-0.9) th/mm3 Eos # (Auto) (0.0-0.4) th/mm3 Baso # (Auto) (0.0-0.2) th/mm3 WBC Differential Differential Comment PT (9.8-11.6) sec INR Ratio APTT (23.4-31.7) sec Sodium (136-145) meq/L Potassium (3.5-5.1) meq/L Chloride (98-107) meq/L Carbon Dioxide (21.0-32.0) meq/L Anion Gap (5-15) meq/L BUN (7-18) mg/dL Creatinine (0.50-1.00) mg/dL Estimated GFR (>89) mL/min Random Glucose (74-106) mg/dL Calcium (8.5-10.1) mg/dL Magnesium (1.5-2.5) mg/dL Total Bilirubin (0.2-1.0) mg/dL AST (15-37) U/L ALT (10-53) U/L Alkaline Phosphatase (45-117) U/L Total Creatine Kinase (26-192) U/L CK-MB (CK-2) (0.5-3.6) ng/mL Troponin I (0.02-0.05) ng/mL B-Natriuretic Peptide 123 H (0-100) pg/mL Total Protein (6.4-8.2) g/dL Albumin (3.4-5.0) g/dL Lipase 144 (73-393) U/L Urine Color Straw (Yellw/Straw) Urine Clarity Clear (Clear) Urine pH 6.0 (5.0-8.5) Ur Specific [place] 1.010 (1.002-1.035) Urine Protein Negative (Neg-Trace) mg/dL Urine Glucose (UA) Negative (Negative) mg/dL Urine Ketones Negative (Negative) mg/dL Urine Occult Blood Negative (Negative) Urine Nitrate Negative (Negative) Urine Bilirubin Negative (Negative) Urine Urobilinogen Less than 2 (Less than 2) mg/dL Ur Leukocyte Esterase Negative (Negative) Urine WBC 1 (0-5) /hpf Ur Squamous Epith Cells <1 (0-5) /hpf Urine Bacteria Rare H (None) /hpf Micro UA Comment Cath-culture ind Ur Microscopic Review Not Reportable Urine Culture Comments Cath-cult indicated 05/27/18 05/27/18 05/27/18 Range/Units 12:02 12:02 12:02 WBC 6.3 (4.0-11.0) th/mm3 RBC 3.77 L (4.00-5.30) mil/mm3 Hgb 12.6 (11.6-15.3) gm/dL Hct 38.1 (35.0-46.0) % MCV 101.0 H (80.0-100.0) fL MCH 33.4 (27.0-34.0) pg MCHC 33.0 (32.0-36.0) % RDW 14.9 (11.6-17.2) % Plt Count 250 (150-450) th/mm3 MPV 7.9 (7.0-11.0) fL Neut % (Auto) 78.1 H (16.0-70.0) % Lymph % (Auto) 10.3 (9.0-44.0) % [place] % (Auto) 9.9 H (0.0-8.0) % Eos % (Auto) 1.3 (0.0-4.0) % Baso % (Auto) 0.4 (0.0-2.0) % Neut # (Auto) 4.9 (1.8-7.7) th/mm3 Lymph # (Auto) 0.6 L (1.0-4.8) th/mm3 [place] # (Auto) 0.6 (0.0-0.9) th/mm3 Eos # (Auto) 0.1 (0.0-0.4) th/mm3 Baso # (Auto) 0.0 (0.0-0.2) th/mm3 WBC Differential . Differential Comment Auto diff final PT 33.5 H (9.8-11.6) sec INR 3.3 Ratio APTT (23.4-31.7) sec Sodium 143 (136-145) meq/L Potassium 3.6 (3.5-5.1) meq/L Chloride 103 (98-107) meq/L Carbon Dioxide 35.1 H (21.0-32.0) meq/L Anion Gap 5 (5-15) meq/L BUN 12 (7-18) mg/dL Creatinine 0.77 (0.50-1.00) mg/dL Estimated GFR 72 L (>89) mL/min Random Glucose 125 H (74-106) mg/dL Calcium 8.1 L (8.5-10.1) mg/dL Magnesium (1.5-2.5) mg/dL Total Bilirubin 0.9 (0.2-1.0) mg/dL AST 22 (15-37) U/L ALT 15 (10-53) U/L Alkaline Phosphatase 137 H (45-117) U/L Total Creatine Kinase (26-192) U/L CK-MB (CK-2) (0.5-3.6) ng/mL Troponin I (0.02-0.05) ng/mL B-Natriuretic Peptide (0-100) pg/mL Total Protein 6.5 (6.4-8.2) g/dL Albumin 3.0 L (3.4-5.0) g/dL Lipase (73-393) U/L Urine Color (Yellw/Straw) Urine Clarity (Clear) Urine pH (5.0-8.5) Ur Specific [place] (1.002-1.035) Urine Protein (Neg-Trace) mg/dL Urine Glucose (UA) (Negative) mg/dL Urine Ketones (Negative) mg/dL Urine Occult Blood (Negative) Urine Nitrate (Negative) Urine Bilirubin (Negative) Urine Urobilinogen (Less than 2) mg/dL Ur Leukocyte Esterase (Negative) Urine WBC (0-5) /hpf Ur Squamous Epith Cells (0-5) /hpf Urine Bacteria (None) /hpf Micro UA Comment Ur Microscopic Review Urine Culture Comments Imaging Data Attestation: I personally reviewed and interpreted this imaging study as follows : Radiologist's impression: Chest X-Ray 05/25/18 22:50 CONCLUSION: No significant change Abdomen/Pelvis CT 05/26/18 00:58 CONCLUSION: 1. Gallstones and gallbladder sludge. 2. No definite acute CT findings in the abdomen or pelvis. Gallbladder Ultrasound 05/26/18 02:53 CONCLUSION: Gallstones and gallbladder sludge. Discharge Plan Discharge Disposition Patient Disposition: ED Admit(ED Internal Use Only) Discharge Order Discharge Orders: ED Use Only Admit Order (Routine); Ordered 05/26/18 Ordered By: Neel Lord Physicians Team ED Provider: Neel Lord ED Midlevel Provider: Akil David Primary Care Provider: Cedrick Cox Attending Provider: Nidia Albert Status ED Status: Left Department Discharge Information Discharge Date/Time: 05/26/18 07:15
[2018-05-25 23:40] LABS: Activated Partial Thrombo Time 43.3 sec (23.4-31.7); Alkaline Phosphatase 151 U/L (45-117); Creatine Kinase 105 U/L (26-192); INR 3.9 Ratio; Prothrombin Time 39.6 sec (9.8-11.6)
[2018-05-25 23:43] LABS: Alanine Aminotransferase 17 U/L (10-53); Albumin 3.5 g/dL (3.4-5.0); Anion Gap 5 meq/L (5-15); Aspartate Aminotransferase 27 U/L (15-37); Blood Urea Nitrogen 17 mg/dL (7-18); Calcium 8.4 mg/dL (8.5-10.1); Chloride 102 meq/L (98-107); Glomerular Filtration Rate 77 mL/min (>89); Glucose,Random 102 mg/dL (74-106); Magnesium 2.2 mg/dL (1.5-2.5); Potassium 3.8 meq/L (3.5-5.1); Sodium 141 meq/L (136-145)
[2018-05-26] MEDS ORDERED: Acetaminophen 500 MG Tablet PO ONE (00:13)
[2018-05-26 01:50] LABS: Bacteria,Urine Rare /hpf; Bilirubin,Urine Negative (Negative); Clarity,Urine Clear (Clear); Color,Urine Straw (Yellw/Straw); Glucose,Urine (UA) Negative (Negative); Leukocyte Esterase,Urine Negative (Negative); Nitrite,Urine Negative (Negative); Squamous Epithelial Cell,Urine <1 /hpf (0-5)
--- NOTE | 2018-05-26 02:47 | CT ---
EXAM DATE: 05/26/2018 1:37 AM EST AGE/SEX: 82 years / Female INDICATIONS: Abdominal pain and bilateral leg swelling. CLINICAL DATA: This is the patient's initial encounter. Patient reports that signs and symptoms have been present for 1 day and indicates a pain score of 5/10. MEDICAL/SURGICAL HISTORY: Congestive heart failure. Cerebrovascular disease. Atrial fibrillati on Hysterectomy. ORAL CONTRAST: No oral contrast ingested. RADIATION DOSE: 32.87 CTDI (mGy) ; Patient body habitus COMPARISON: No prior exams available for comparison. TECHNIQUE: Multiple contiguous axial images were obtained through the abdomen and pelvis following b olus infusion of 97 ml Omnipaque 350 (iohexol) nonionic water-soluble contrast as a single exam dos e. No oral contrast ingested. Using automated exposure control and adjustment of the mA and/or kV ac cording to patient size, radiation dose was kept as low as reasonably achievable to obtain optimal di agnostic quality images. DICOM format image data is available electronically for review and comparis on. FINDINGS: The study is mildly degraded by patient and respiratory motion Lower Lungs: Mild basilar atelectasis or scarring. Cardiac enlargement. Liver: The liver has a homogeneous density without space-occupying lesion. There is no dilation of th e biliary tree. Gallbladder is filled with stones and sludge. Spleen: Homogeneous density without enlargement. 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 Pancreas: Unremarkable without mass or calcification. Kidneys: Areas of apparent diminished density involving the apex of the right kidney which may be ar tifactual related to breathing motion. No evidence of hydronephrosis. Adrenal Glands: Unremarkable. Aorta: The aorta and proximal iliac vessels are grossly unremarkable without aneurysmal dilation. Bowel/Mesentery: Diverticular involvement of the distal colon. No abnormal dilatation, wall thickeni ng or focal inflammatory changes. Abdominal Wall: Intact. Retroperitoneum: No evidence of adenopathy in the retrocrural, para-aortic, or deep pelvic regions. Bladder: Contours are smooth. Reproductive Organs: Uterus surgically absent. No evidence of pelvic mass or free fluid. Inguinal: The inguinal region is unremarkable without evidence of adenopathy. Bony Structures: Unremarkable. CONCLUSION: 1. Gallstones and gallbladder sludge. 2. No definite acute CT findings in the abdomen or pelvis. Electronically signed by: Darius Hernandez MD Board Certified Radiologist 05/26/2018 2:46 AM EST
--- NOTE | 2018-05-26 04:44 | US ---
EXAM DATE: 05/26/2018 4:36 AM EST AGE/SEX: 82 years / Female INDICATIONS: RUQ pain. CLINICAL DATA: This is the patient's initial encounter. Patient reports that signs and symptoms have been present for 2 days and indicates a pain score of 8/10. MEDICAL/SURGICAL HISTORY: . Atrial fibrillation. CHF. Left sided stroke. Hysterectomy. COMPARISON: . MEASUREMENTS: Liver:__ 17.2 cm. Common Bile Duct:__ 2mm. FINDINGS: Liver: Increased echogenicity without focal lesion or ductal dilatation. Portal Vein: Hepatopedal flow seen in portal vein. Common Duct: No intraluminal mass or stone visualized. Gallbladder: Filled with stones and sludge Pancreas: The visualized portions are within normal limits Right Kidney: Not visualized. Other: None. CONCLUSION: Gallstones and gallbladder sludge. Electronically signed by: Darius Hernandez MD Board Certified Radiologist 05/26/2018 4:42 AM EST
[2018-05-26] MEDS ORDERED: Ciprofloxacin 200 MG/100 ML 200 MG/100 ML PIGGYBACK IV.SIG ONE (04:46)
[2018-05-26] MEDS ORDERED: Bisacodyl 10 MG Supp RECTAL PRN (05:53)
[2018-05-26] MEDS ORDERED: SINCALIDE IV.SIG ONE (05:53)
[2018-05-26] MEDS ORDERED: SODIUM CHLOR 0.9% IV.SIG ONE (05:53)
[2018-05-26] MEDS: Sod Chloride 0.9% Inj 1,000 ML IV.CONT SCH ×2 (06:27→09:09)
--- NOTE | 2018-05-26 08:23 | P.HPIM ---
History of Present Illness Service: [facility] Primary Care Physician: Cedrick Cox Chief Complaint: abdominal bloating, lower extremity edema History of Present Illness: Patient is a 82 year old female with a past medical history significant for atrial fibrillation on Coumadin, CHF, bilateral lower extremity venous insufficiency, CVA with left LE weakness, hypertension and dyslipidemia. She presented to the emergency department complaining of worsening lower extremity edema, left greater than right and abdominal distention. Patient reports muscle cramps to her left lower extremity. She has cut back on he Lasix secondary to having to urinate frequently. She denies chest pain, palpitations, cough, fever or chills. Endorses intermittent shortness of breath but denies orthopnea or PND. A CT abdomen/pelvis was obtained in ED to evaluate for her abdominal discomfort and showed cholelithiasis with sludge. A right upper quadrant ultrasound also shows gallbladder sludge and stones. ED provider spoke with radiologist who expressed concern over possible cholecystitis. Cipro and Flagyl were initiated in ED. Alk phos is elevated and 151, however, patients total bili, AST and ALT levels are within normal limits. BNP is 123, initial random troponin is negative. Serum lipase level is 144. Patient refused a lower extremity doppler in ED. Her INR is elevated and 3.9. Patient has been taking Amoxicillin for an upcoming tooth extraction. Review of Systems Review of Systems: all other systems reviewed are negative (except as documented all other systems are reviewed and negative) PMFSH History History Provided By: Patient and Medical Record Medical History Medical History Atrial fibrillation (Acute) CHF (congestive heart failure) (Acute) History of hysterectomy (Acute) Stroke (Acute) Family History Family History Other Family history non-contributory Social History Social History Substance History: No History of Abuse Second Hand Smoke Exposure: No Smoking Status: Never smoker How Often Do You Have a Drink Containing Alcohol: Never Immunization History Tetanus Immunization: Unsure Medications and Allergies Allergies Allergy/AdvReac Type Severity Reaction Status Date / Time Penicillins Allergy Severe Abdominal Verified 05/25/18 22:37 Pain Home Medications Medication Instructions Recorded Confirmed Type diltiazem HCl 120 mg PO DAILY 10/26/17 05/25/18 History [id number] 1 tab PO DAILY 10/26/17 05/25/18 History warfarin 5 mg PO DAILY 10/26/17 05/25/18 History amoxicillin 500 mg PO BID 05/25/18 05/25/18 History furosemide [Lasix] 40 mg PO DAILY 05/25/18 05/25/18 History Active Medications: Active Medications Acetaminophen (Tylenol) 650 mg PO Q4H PRN PRN Reason: Temp > 100.4 Al Hydroxide/Mg Hydroxide (Milk Of Magnesia Liq) 30 ml PO Q12H PRN PRN Reason: Mild Constipation Bisacodyl (Dulcolax Supp) 10 mg RECTAL DAILY PRN PRN Reason: SEVERE CONSITIPATION Furosemide (Lasix) 40 mg PO DAILY [facility] Sodium Chloride (Ns Inj) 1,000 mls @ 100 mls/hr IV.CONT .Q10H [facility] Last Admin: 05/26/18 06:27 Dose: Not Given Lactulose (Lactulose Liq) 30 ml PO DAILY PRN PRN Reason: SEVERE CONSITIPATION Non-Formulary Medication (Diltiazem Hcl [Diltiazem Hcl]) 120 mg PO DAILY [facility] Ondansetron HCl (Zofran Inj) 4 mg IV.PUSH Q6H PRN PRN Reason: NAUSEA OR VOMITING Senna/Docusate Sodium (Sayra-Colace) 1 tab PO BID [facility] Sennosides (Senokot) 17.2 mg PO Q12H PRN PRN Reason: Moderate Constipation Sodium Chloride (Ns Flush) 2 ml IV.FLUSH UNSCH PRN PRN Reason: FLUSH AFTER USING IV ACCESS Sodium Chloride (Ns Flush) 2 ml IV.FLUSH BID [facility] Sodium Chloride (Ns Flush) 2 ml IV.FLUSH PRN PRN PRN Reason: FLUSH AFTER USING IV ACCESS Physical Exam Vital signs: Vital Signs 05/25/18 22:42 05/25/18 22:44 05/25/18 22:50 Temperature 97.8 F Pulse Rate 82 Respiratory Rate 19 Blood Pressure 174/47 H Pulse Oximetry 98 98 96 05/26/18 05:53 05/26/18 05:54 05/26/18 08:00 Temperature 97.7 F Pulse Rate 102 H 92 H 100 H Respiratory Rate 18 24 Blood Pressure 156/71 H 146/77 H 164/73 H Pulse Oximetry 98 92 L Intake & Output 05/25/18 05/26/18 05/26/18 18:59 06:59 18:59 Weight 127.006 kg Constitutional no acute distress, cooperative and agitated Routine HEENT Exam Head: Present normocephalic and atraumatic Eye: Present PERRL ENT: Present mucous membranes moist Routine Neck Exam Present supple and trachea midline; Absent JVD Routine Respiratory Exam Present CTA bilaterally; Absent accessory muscle use, respiratory distress, rhonchi and wheezes Routine Cardiovascular Exam Present irregularly irregular Routine Abdominal Exam Present soft; Absent tenderness and distended Routine Skin Exam Present intact Comments: venous stasis skin changes bilateral lower extremities Routine Neurological Exam Present alert, oriented X3 and CN II-XII intact; Absent sensory deficit Left lower extremity weakness d/t previous CVA Routine Psychiatric Exam Present good insight, good judgment and anxious Results Labs CBC & Chem 7: 05/25/18 23:00 05/25/18 23:00 Imaging Impressions Chest X-Ray 05/25/18 22:50 CONCLUSION: No significant change Abdomen/Pelvis CT 05/26/18 00:58 CONCLUSION: 1. Gallstones and gallbladder sludge. 2. No definite acute CT findings in the abdomen or pelvis. Gallbladder Ultrasound 05/26/18 02:53 CONCLUSION: Gallstones and gallbladder sludge. Caprini VTE Risk Assessment Caprini VTE Risk Assessment: Moderate/High Risk (score >= 2) Caprini Risk Assessment Model: Point Value = 1 Point Value = 2 Point Value = 3 Point Value = 5 Age 41-60 Minor surgery BMI > 25 kg/m2 Swollen legs Varicose veins or History of unexplained or recurrent spontaneous Oral contraceptives or hormone replacement Sepsis (< 1 month) Serious lung disease, including pneumonia (< 1 month) Abnormal pulmonary function Acute myocardial infarction Congestive heart failure (< 1 month) History of inflammatory bowel disease Medical patient at bed rest Age 61-74 Arthroscopic surgery Major open surgery (> 45 min) Laparoscopic surgery (> 45 min) Malignancy Confined to bed (> 72 hours) Immobilizing plaster cast Central venous access Age >= 75 History of VTE Family history of VTE Factor V Leiden Prothrombin [id number] Lupus anticoagulant Anticardiolipin antibodies Elevated serum homocysteine Heparin-induced thrombocytopenia Other congenital or acquired thrombophilia Stroke (< 1 month) Elective arthroplasty Hip, pelvis, or leg fracture Acute spinal cord injury (< 1 month) Prophylaxis Regimen: Total Risk Factor Score Risk Level Prophylaxis Regimen 0-1 Low Early ambulation 2 Moderate Order ONE of the following: *Sequential Compression Device (SCD) *Heparin 5000 units SQ BID 3-4 Higher Order ONE of the following medications: *Heparin 5000 units SQ TID *Enoxaparin/Lovenox 40 mg SQ daily (WT < 150 kg, CrCl > 30 mL/min) *Enoxaparin/Lovenox 30 mg SQ daily (WT < 150 kg, CrCl > 10-29 mL/min) *Enoxaparin/Lovenox 30 mg SQ BID (WT < 150 kg, CrCl > 30 mL/min) AND/OR *Sequential Compression Device (SCD) 5 or more Highest Order ONE of the following medications: *Heparin 5000 units SQ TID (Preferred with Epidurals) *Enoxaparin/Lovenox 40 mg SQ daily (WT < 150 kg, CrCl > 30 mL/min) *Enoxaparin/Lovenox 30 mg SQ daily (WT < 150 kg, CrCl > 10-29 mL/min) *Enoxaparin/Lovenox 30 mg SQ BID (WT < 150 kg, CrCl > 30 mL/min) AND *Sequential Compression Device (SCD) Assessment and Plan Plan Patient is a 82-year-old female with a past medical history significant for atrial fibrillation on chronic anticoagulation with Coumadin, CHF, CVA with left lower extremity weakness, chronic venous insufficiency, hypertension and dyslipidemia. She presented to the emergency department complaining of increased lower extremity edema and increased abdominal distention. Lower extremity edema left > right -pt has been admitted under observation status -declined lower extremity doppler in ED, states she is here for CHF exacerbation only and does not wish to undergo any unnecessary testing -BNP 123 -hx of bilateral lower extremity venous insufficiency Cholelithiasis with sludge -CT abdomen/pelvis shows above findings -US right upper quadrant shows gallstones and sludge -pt refuses HIDA scan, she states even if she has inflammation of her gallbladder she does not want to have surgery and would rather sign herself out AMA -cipro and flagyl -denies RUQ pain, nausea or vomiting Congestive heart failure, systolic dysfunction -possibly mild exacerbation -resume home Lasix 20 mg PO daily Hx of Atrial fibrillation with embolic CVA -pharmacy dosing for Coumadin -continue home Cardizem Supratherapeutic INR -INR 3.9 -pt with recent abx use for scheduled tooth extraction -hold coumadin, pharmacy consult for dosing Hx of CVA with LLE weakness -PT eval and treat MDM: self Code: Full GI ppx: not indicated DVT ppx: on Coumadin Discussed with: RN, patient Dispo: Home with , hospice
[2018-05-26] MEDS ORDERED: Ciprofloxacin 400 MG/200 ML 400 MG/200 ML PIGGYBACK IV.SIG ONE (09:00)
[2018-05-26] MEDS: Senna/Docusate Sodium 8.6/50 MG Tablet PO SCH ×3 (09:09→21:08)
[2018-05-26] MEDS: dilTIAZem CD 120 MG Capsule PO SCH ×3 (09:09→21:08)
[2018-05-26] MEDS: Furosemide 40 MG Tablet PO SCH ×2 (09:09→09:40)
[2018-05-26] MEDS ORDERED: Warfarin Consult Pharmacy OTHER PRN (11:43)
--- NOTE | 2018-05-26 12:24 | ECG ---
Date Performed: 05/26/2018 Time Performed: 03:00:45 PTAGE: 82 years EKG: ATRIAL FIBRILLATION WITH RAPID VENTRICULAR RESPONSE WITH ABERRANT CONDUCTION OR VENTRICULAR PREMATURE COMPLEXES NONSPECIFIC T-WAVE ABNORMALITY ABNORMAL RHYTHM ECG PREVIOUS TRACING : 10/26/2017 13.44 DOCTOR: Gus Funez Interpretating Date/Time 05/26/2018 12:23:03
[2018-05-26] MEDS: Acetaminophen 325 MG Tablet PO PRN (14:49)
[2018-05-27] MEDS: Senna/Docusate Sodium 8.6/50 MG Tablet PO SCH ×3 (09:52→20:41)
[2018-05-27] MEDS: Furosemide 40 MG Tablet PO SCH (09:52)
[2018-05-27 12:52] LABS: Baso % (Auto) 0.4 % (0.0-2.0); Eos # (Auto) 0.1 th/mm3 (0.0-0.4); Eos % (Auto) 1.3 % (0.0-4.0); Hematocrit 38.1 % (35.0-46.0); Hemoglobin 12.6 gm/dL (11.6-15.3); Lymph # (Auto) 0.6 th/mm3 (1.0-4.8); Lymph % (Auto) 10.3 % (9.0-44.0); Mean Corpuscular Hemoglobin 33.4 pg (27.0-34.0); Mean Platelet Volume 7.9 fL (7.0-11.0); Mono # (Auto) 0.6 th/mm3 (0.0-0.9); Mono % (Auto) 9.9 % (0.0-8.0); Neut # (Auto) 4.9 th/mm3 (1.8-7.7); Neut % (Auto) 78.1 % (16.0-70.0); Platelet Count 250 th/mm3 (150-450); Red Blood Count 3.77 mil/mm3 (4.00-5.30); Red Cell Distribution Width 14.9 % (11.6-17.2); White Blood Count 6.3 th/mm3 (4.0-11.0)
[2018-05-27 12:58] LABS: INR 3.3 Ratio; Prothrombin Time 33.5 sec (9.8-11.6)
[2018-05-27 13:15] LABS: Anion Gap 5 meq/L (5-15); Aspartate Aminotransferase 22 U/L (15-37); Blood Urea Nitrogen 12 mg/dL (7-18); Calcium 8.1 mg/dL (8.5-10.1); Carbon Dioxide 35.1 meq/L (21.0-32.0); Chloride 103 meq/L (98-107); Glomerular Filtration Rate 72 mL/min (>89); Glucose,Random 125 mg/dL (74-106); Potassium 3.6 meq/L (3.5-5.1); Sodium 143 meq/L (136-145)
[2018-05-27 13:18] LABS: Alanine Aminotransferase 15 U/L (10-53); Alkaline Phosphatase 137 U/L (45-117); Total Protein 6.5 g/dL (6.4-8.2)
--- NOTE | 2018-05-27 13:32 | P.PNIM ---
Subjective Interval history: Very talkative and cooperant. Appears sob. Says she was able to ambulate earluier with PT. Says she wants to go to rehab as she wants to be able to ambulate better and return to home. No fever or chills. With cough and sob. No n/v/d/c. Physical Exam Vital signs: Vital Signs 05/26/18 16:00 05/26/18 20:00 05/26/18 23:00 Temperature 98.1 F 97.8 F Pulse Rate 103 H 90 97 H Respiratory Rate 22 18 Blood Pressure 162/85 H 135/80 Pulse Oximetry 93 L 90 L 05/27/18 00:00 05/27/18 04:00 05/27/18 08:00 Temperature 98.1 F 97.5 F L Pulse Rate 99 H 108 H 100 H Respiratory Rate 20 18 Blood Pressure 138/87 143/81 H Pulse Oximetry 93 L 86 L 05/27/18 11:00 Temperature 97.7 F Pulse Rate 93 H Respiratory Rate 18 Blood Pressure 144/72 H Pulse Oximetry 90 L Intake & Output 05/26/18 05/27/18 05/27/18 18:59 06:59 18:59 Intake Total 700 / 700 Output Total 1350 / 1350 Balance 700 / 700 -1350 / -1350 Weight 99.159 kg 133.2 kg Intake: IV 700 / 700 NS Inj 1,000 ML @ 100 mls/hr IV 400 / 400 .CONT .Q10H [facility] Rx#:[id number] Cipro 400 MG/200 ML Inj 400 mg 200 / 200 In 200 ml @ 200 mls/hr IV.SIG ONCE ONE Rx#:[id number] Flagyl 500 MG Inj 100 ML @ 100 100 / 100 mls/hr IV.SIG Q8H [facility] Rx#: [id number] Output: Urine 1350 / 1350 Other: Date of Last Bowel Movement 05/25/18 Weight On Admission 98.883 kg Narrative: GENERAL: Elderly female, in nad. SKIN: Venous stasis dermatitis bilateral lower extremities. Warm and dry. HEAD: Normocephalic. EYES: No scleral icterus. No injection or drainage. NECK: Supple, trachea midline. No JVD or lymphadenopathy. CARDIOVASCULAR: Regular rate and rhythm without murmurs, gallops, or rubs. RESPIRATORY: Breath sounds equal bilaterally. No accessory muscle use. GASTROINTESTINAL: Abdomen soft, obese, non-tender, nondistended. MUSCULOSKELETAL: No cyanosis, or edema. NEURO: Alert and oriented. Residual Left LE weakness from previous CVA. Normal speech. Results Labs CBC & Chem 7: 05/27/18 12:02 05/27/18 12:02 Labs: Microbiology 05/26/18 01:15 Catheterized Urine Urine Culture - Preliminary No growth in 24 hours Assessment and Plan Plan Patient is a 82-year-old female with a past medical history significant for atrial fibrillation on chronic anticoagulation with Coumadin, CHF, CVA with left lower extremity weakness, chronic venous insufficiency, hypertension and dyslipidemia. She presented to the emergency department complaining of increased lower extremity edema and increased abdominal distention. Lower extremity edema left > right -pt has been admitted under observation status -declined lower extremity doppler in ED, states she is here for CHF exacerbation only and does not wish to undergo any unnecessary testing -BNP 123 on admission -hx of bilateral lower extremity venous insufficiency Cholelithiasis with sludge -CT abdomen/pelvis shows above findings -US right upper quadrant shows gallstones and sludge -pt refuses HIDA scan, she states even if she has inflammation of her gallbladder she does not want to have surgery and would rather sign herself out AMA -Cont cipro and flagyl -denies RUQ pain, nausea or vomiting Congestive heart failure, systolic dysfunction -possibly mild exacerbation -increase Lasix to 20 mg PO bid Hx of Atrial fibrillation with embolic CVA -pharmacy dosing for Coumadin -continue home Cardizem Supratherapeutic INR -INR 3.9 -pt with recent abx use for scheduled tooth extraction -hold coumadin, pharmacy consult for dosing Hx of CVA with LLE weakness -PT eval and treat MDM: self Code: Full GI ppx: not indicated DVT ppx: on Coumadin Discussed with: RN, patient Dispo: Home with , hospice Progress Note: Quality VTE Deep Vein Thrombosis/Pulmonary Embolism Present on Admission: No
[2018-05-27] MEDS: Furosemide 20 MG Tablet PO SCH (17:39)
[2018-05-27] MEDS ORDERED: Furosemide 20 MG Tablet PO SCH (18:00)
[2018-05-27] MEDS: dilTIAZem CD 120 MG Capsule PO SCH (20:37)
[2018-05-28] MEDS: Nystatin 100,000 UNITS/GM Powder 15 GM Bottle TOPICAL SCH ×5 (01:06→22:16)
[2018-05-28 09:07] LABS: INR 2.2 Ratio; Prothrombin Time 22.5 sec (9.8-11.6)
[2018-05-28] MEDS: Furosemide 20 MG Tablet PO SCH ×2 (09:10→17:12)
[2018-05-28] MEDS: Senna/Docusate Sodium 8.6/50 MG Tablet PO SCH ×2 (09:11→22:17)
[2018-05-28] MEDS: Acetaminophen 325 MG Tablet PO PRN ×3 (09:14→22:10)
[2018-05-28] MEDS ORDERED: Simethicone 125 MG Chew Tablet PO PRN ×2 (10:18→12:00)
--- NOTE | 2018-05-28 16:20 | P.PNIM ---
Subjective Interval history: She is very weak and still with sob. Less cough. LE imprpved some. On Lasix IV bid. Good urine OP. [facility] she is denied and fees upset. Says she doesnt like any other SNFs that her insurance covers. patient complaints of constipation and gas in the morning. Physical Exam Vital signs: Vital Signs 05/27/18 20:00 05/27/18 23:35 05/28/18 00:47 Temperature 97.8 F 98.5 F Pulse Rate 96 H 100 H Respiratory Rate 16 16 Blood Pressure 141/68 H 138/93 H Pulse Oximetry 91 L 86 L 91 L 05/28/18 04:00 05/28/18 07:51 05/28/18 08:00 Temperature 97.5 F L 97.6 F Pulse Rate 92 H 97 H 83 Respiratory Rate 20 18 Blood Pressure 141/100 H 189/89 H Pulse Oximetry 92 L 90 L Intake & Output 05/27/18 05/28/18 05/28/18 18:59 06:59 18:59 Intake Total 1250 / 1250 Output Total 700 / 700 Balance 1250 / 1250 -700 / -700 Weight 131.3 kg Intake: Oral 1250 / 1250 Output: Urine 700 / 700 Other: # Voids 1,320 Date of Last Bowel Movement 05/27/18 05/27/18 # Bowel Movements 1 Narrative: GENERAL: Elderly female, in nad. SKIN: Venous stasis dermatitis bilateral lower extremities. Warm and dry. HEAD: Normocephalic. EYES: No scleral icterus. No injection or drainage. NECK: Supple, trachea midline. No JVD or lymphadenopathy. CARDIOVASCULAR: Regular rate and rhythm without murmurs, gallops, or rubs. RESPIRATORY: Breath sounds equal bilaterally. No accessory muscle use. GASTROINTESTINAL: Abdomen soft, obese, non-tender, nondistended. MUSCULOSKELETAL: No cyanosis, or edema. NEURO: Alert and oriented. Residual Left LE weakness from previous CVA. Normal speech. Results Labs CBC & Chem 7: 05/27/18 12:02 05/27/18 12:02 Labs: Microbiology 05/26/18 01:15 Catheterized Urine Urine Culture - Final No growth in 48 hours Assessment and Plan Plan Patient is a 82-year-old female with a past medical history significant for atrial fibrillation on chronic anticoagulation with Coumadin, CHF, CVA with left lower extremity weakness, chronic venous insufficiency, hypertension and dyslipidemia. She presented to the emergency department complaining of increased lower extremity edema and increased abdominal distention. Lower extremity edema left > right -pt has been admitted under observation status -declined lower extremity doppler in ED, states she is here for CHF exacerbation only and does not wish to undergo any unnecessary testing -BNP 123 on admission -hx of bilateral lower extremity venous insufficiency Cholelithiasis with sludge -CT abdomen/pelvis shows above findings -US right upper quadrant shows gallstones and sludge -pt refuses HIDA scan, she states even if she has inflammation of her gallbladder she does not want to have surgery and would rather sign herself out AMA -Cont cipro and flagyl -denies RUQ pain, nausea or vomiting Congestive heart failure, systolic dysfunction -possibly mild exacerbation -increase Lasix to 20 mg PO bid Hx of Atrial fibrillation with embolic CVA -pharmacy dosing for Coumadin -continue home Cardizem Supratherapeutic INR -INR 3.9 -pt with recent abx use for scheduled tooth extraction -hold coumadin, pharmacy consult for dosing Hx of CVA with LLE weakness -PT eval and treat MDM: self Code: Full GI ppx: not indicated DVT ppx: on Coumadin Discussed with: RN, patient Dispo: Patient wants everything done to make her walk again and to go back in her home. Denied by [facility] for admission to rehab. [facility] is working to find a rehab place. patient on IV lasix at this time, requiring more diuresis Progress Note: Quality VTE Deep Vein Thrombosis/Pulmonary Embolism Present on Admission: No
[2018-05-28] MEDS: dilTIAZem CD 120 MG Capsule PO SCH (22:11)
[2018-05-29] MEDS: Acetaminophen 325 MG Tablet PO PRN ×3 (03:54→22:23)
[2018-05-29 07:37] LABS: INR 1.9 Ratio
[2018-05-29] MEDS: Nystatin 100,000 UNITS/GM Powder 15 GM Bottle TOPICAL SCH ×4 (09:18→22:24)
[2018-05-29] MEDS: Furosemide 20 MG Tablet PO SCH ×2 (09:18→17:14)
[2018-05-29] MEDS: Senna/Docusate Sodium 8.6/50 MG Tablet PO SCH ×2 (09:18→22:23)
--- NOTE | 2018-05-29 15:06 | P.PNIM ---
Subjective Interval history: The patient is in bed she appears tired. Says she was able to ambulate her with the nurse who was very helpful for her today. Patient however does not want to go to any rehab facility except [facility] however she is not a candidate for [facility]. Patient wants to go home however she is not able to get out of bed without help and says she is not able to ambulate without help she feels very tired at this time. Does not have help at home. Says she is short of breath after walking. However edema in her legs has improved a little bit. Says Lasix is helping a lot. She has urinary incontinence at baseline. Has external Blum Physical Exam Vital signs: Vital Signs 05/28/18 16:00 05/28/18 19:39 05/28/18 20:00 Temperature 97.4 F L 97.9 F Pulse Rate 96 H 94 H 97 H Respiratory Rate 16 16 Blood Pressure 143/82 H 131/72 Pulse Oximetry 93 L 05/28/18 23:40 05/29/18 03:04 05/29/18 08:00 Temperature 97.8 F 97.7 F 97.8 F Pulse Rate 97 H 93 H 87 Respiratory Rate 16 16 19 Blood Pressure 152/85 H 129/88 140/82 Pulse Oximetry 91 L 92 L 90 L 05/29/18 12:00 Temperature 97.7 F Pulse Rate 87 Respiratory Rate 18 Blood Pressure 164/86 H Pulse Oximetry 92 L Intake & Output 05/28/18 05/29/18 05/29/18 18:59 06:59 18:59 Intake Total 960 / 960 Output Total 1000 / 1000 1200 / 1200 Balance -1000 / -1000 -240 / -240 Weight 131.3 kg Intake: Oral 960 / 960 Output: Urine 1000 / 1000 1200 / 1200 Other: Date of Last Bowel Movement 05/28/18 # Bowel Movements 1 Narrative: GENERAL: Elderly female, in nad. SKIN: Venous stasis dermatitis bilateral lower extremities. Warm and dry. HEAD: Normocephalic. EYES: No scleral icterus. No injection or drainage. NECK: Supple, trachea midline. No JVD or lymphadenopathy. CARDIOVASCULAR: Regular rate and rhythm without murmurs, gallops, or rubs. RESPIRATORY: Breath sounds equal bilaterally. No accessory muscle use. GASTROINTESTINAL: Abdomen soft, obese, non-tender, nondistended. MUSCULOSKELETAL: No cyanosis, or edema. NEURO: Alert and oriented. Residual Left LE weakness from previous CVA. Normal speech. Results Labs CBC & Chem 7: 05/29/18 16:11 05/29/18 16:11 Assessment and Plan Plan Patient is a 82-year-old female with a past medical history significant for atrial fibrillation on chronic anticoagulation with Coumadin, CHF, CVA with left lower extremity weakness, chronic venous insufficiency, hypertension and dyslipidemia. She presented to the emergency department complaining of increased lower extremity edema and increased abdominal distention. Lower extremity edema left > right -pt has been admitted under observation status -declined lower extremity doppler in ED, states she is here for CHF exacerbation only and does not wish to undergo any unnecessary testing -BNP 123 on admission -hx of bilateral lower extremity venous insufficiency Cholelithiasis with sludge -CT abdomen/pelvis shows above findings -US right upper quadrant shows gallstones and sludge -pt refuses HIDA scan, she states even if she has inflammation of her gallbladder she does not want to have surgery and would rather sign herself out AMA -Cont cipro and flagyl -denies RUQ pain, nausea or vomiting Congestive heart failure, systolic dysfunction -possibly mild exacerbation -increase Lasix to 20 mg PO bid Hx of Atrial fibrillation with embolic CVA -pharmacy dosing for Coumadin -continue home Cardizem Supratherapeutic INR -INR 3.9 -pt with recent abx use for scheduled tooth extraction -hold coumadin, pharmacy consult for dosing Hx of CVA with LLE weakness -PT eval and treat MDM: self Code: Full GI ppx: not indicated DVT ppx: on Coumadin Discussed with: RN, patient Dispo: Patient wants everything done to make her walk again and to go back in her home. Denied by [facility] for admission to rehab. [facility] is working to find a rehab place. patient on IV lasix at this time, requiring more diuresis, improved some will change lasix to PO 40 mg daily and will monitor. patient is however not able to get out of bed without help and doens't want to go to SNF, she would like [facility] but not accepted. Patient says she doenst have any help at home and is not able to ambulate and take care of herself. She wants to imprpve and go home Will order PT daily until ptient is deemed safe for DC Progress Note: Quality VTE Deep Vein Thrombosis/Pulmonary Embolism Present on Admission: No
[2018-05-29 16:52] LABS: Baso % (Auto) 0.4 % (0.0-2.0); Eos # (Auto) 0.2 th/mm3 (0.0-0.4); Eos % (Auto) 3.8 % (0.0-4.0); Hematocrit 39.3 % (35.0-46.0); Hemoglobin 13.2 gm/dL (11.6-15.3); Lymph # (Auto) 0.8 th/mm3 (1.0-4.8); Lymph % (Auto) 15.7 % (9.0-44.0); Mean Corpuscular HGB Conc 33.7 % (32.0-36.0); Mean Corpuscular Hemoglobin 33.9 pg (27.0-34.0); Mean Corpuscular Volume 100.8 fL (80.0-100.0); Mono # (Auto) 0.6 th/mm3 (0.0-0.9); Mono % (Auto) 11.3 % (0.0-8.0); Neut # (Auto) 3.5 th/mm3 (1.8-7.7); Neut % (Auto) 68.8 % (16.0-70.0); Platelet Count 248 th/mm3 (150-450); Red Cell Distribution Width 14.8 % (11.6-17.2); White Blood Count 5.1 th/mm3 (4.0-11.0)
[2018-05-29 17:10] LABS: Calcium 8.2 mg/dL (8.5-10.1); Carbon Dioxide 38.3 meq/L (21.0-32.0); Potassium 3.6 meq/L (3.5-5.1)
[2018-05-29] MEDS: dilTIAZem CD 120 MG Capsule PO SCH (22:23)
[2018-05-30 07:33] LABS: INR 1.8 Ratio; Prothrombin Time 18.2 sec (9.8-11.6)
[2018-05-30 07:38] LABS: Baso % (Auto) 0.5 % (0.0-2.0); Eos # (Auto) 0.2 th/mm3 (0.0-0.4); Eos % (Auto) 4.4 % (0.0-4.0); Hematocrit 40.4 % (35.0-46.0); Hemoglobin 13.5 gm/dL (11.6-15.3); Lymph # (Auto) 0.9 th/mm3 (1.0-4.8); Lymph % (Auto) 19.5 % (9.0-44.0); Mean Corpuscular HGB Conc 33.4 % (32.0-36.0); Mean Corpuscular Hemoglobin 33.4 pg (27.0-34.0); Mean Platelet Volume 7.8 fL (7.0-11.0); Mono # (Auto) 0.6 th/mm3 (0.0-0.9); Mono % (Auto) 12.5 % (0.0-8.0); Neut % (Auto) 63.1 % (16.0-70.0); Platelet Count 257 th/mm3 (150-450); Red Blood Count 4.04 mil/mm3 (4.00-5.30); White Blood Count 4.8 th/mm3 (4.0-11.0)
[2018-05-30 07:56] LABS: Calcium 8.4 mg/dL (8.5-10.1); Carbon Dioxide 36.6 meq/L (21.0-32.0); Potassium 3.5 meq/L (3.5-5.1)
[2018-05-30] MEDS: Nystatin 100,000 UNITS/GM Powder 15 GM Bottle TOPICAL SCH ×4 (08:55→22:10)
[2018-05-30] MEDS: Furosemide 40 MG Tablet PO SCH (08:55)
[2018-05-30] MEDS: Senna/Docusate Sodium 8.6/50 MG Tablet PO SCH ×2 (08:56→22:10)
--- NOTE | 2018-05-30 10:29 | P.PNIM ---
Subjective Interval history: Follow-up visit CHF exacerbation Patient is resting in bed. She reports back pain from lying in bed. Discussed with RN about providing recliner chair and having patient sit up in chair. Patient requesting physical therapy to work out with her today. She complains of feeling weak and is concerned about losing more of her strength. Patient verbalizes feeling of disappointment about not being able to go to [place] for rehab. Reports improvement in her bilateral lower extremity edema and abdominal distention. Physical Exam Vital signs: Vital Signs 05/29/18 12:00 05/29/18 16:00 05/29/18 20:00 Temperature 97.7 F 98.3 F 97.7 F Pulse Rate 87 89 96 H Respiratory Rate 18 18 16 Blood Pressure 164/86 H 133/76 160/85 H Pulse Oximetry 92 L 93 L 92 L 05/29/18 23:12 05/30/18 08:00 Temperature 97.6 F 98.9 F Pulse Rate 87 Respiratory Rate 16 18 Blood Pressure 132/80 139/90 Pulse Oximetry 94 L 91 L Intake & Output 05/29/18 05/30/18 05/30/18 18:59 06:59 18:59 Output Total 1800 / 1800 Balance -1800 / -1800 Output: Urine 1800 / 1800 Narrative: GENERAL: Elderly female, in nad. SKIN: Venous stasis dermatitis bilateral lower extremities. Warm and dry. HEAD: Normocephalic. EYES: No scleral icterus. No injection or drainage. NECK: Supple, trachea midline. No JVD or lymphadenopathy. CARDIOVASCULAR: Regular rate and rhythm without murmurs, gallops, or rubs. RESPIRATORY: Breath sounds equal bilaterally. No accessory muscle use. GASTROINTESTINAL: Abdomen soft, obese, non-tender, nondistended. MUSCULOSKELETAL: No cyanosis, or edema. NEURO: Alert and oriented. Residual Left LE weakness from previous CVA. Normal speech. Results Labs CBC & Chem 7: 05/30/18 06:55 05/30/18 06:55 Assessment and Plan Plan Patient is a 82-year-old female with a past medical history significant for atrial fibrillation on chronic anticoagulation with Coumadin, CHF, CVA with left lower extremity weakness, chronic venous insufficiency, hypertension and dyslipidemia. She presented to the emergency department complaining of increased lower extremity edema and increased abdominal distention. Lower extremity edema left > right -improved -declined lower extremity doppler in ED, states she is here for CHF exacerbation only and does not wish to undergo any unnecessary testing -BNP 123 -hx of bilateral lower extremity venous insufficiency Cholelithiasis with sludge -CT abdomen/pelvis shows above findings -US right upper quadrant shows gallstones and sludge -pt refuses HIDA scan, she states even if she has inflammation of her gallbladder she does not want to have surgery and would rather sign herself out AMA -denies RUQ pain, nausea or vomiting Congestive heart failure exacerbation, systolic dysfunction -improved -continue PO Lasix 40 mg daily Hx of Atrial fibrillation with embolic CVA -pharmacy dosing for Coumadin, INR 1.8 -continue home Cardizem Supratherapeutic INR -resolved Hx of CVA with LLE weakness -PT eval and treat MDM: self Code: Full GI ppx: not indicated DVT ppx: on Coumadin Discussed with: RN, patient, supervising MD Dispo: patient unable to get out of bed without assistance. She lives alone and states she will not be able to care for herself if she were to be discharged home in her current state. Patient requested to go to [place] rehab, however, she was not accepted. Refusing to go to SNF. Would like to continue to work out with PT here until she is stronger. Continue daily PT until it is safe for patient to go home. Progress Note: Quality VTE Deep Vein Thrombosis/Pulmonary Embolism Present on Admission: No
[2018-05-30] MEDS: dilTIAZem CD 120 MG Capsule PO SCH (22:09)
[2018-05-30] MEDS: Acetaminophen 325 MG Tablet PO PRN (22:09)
[2018-05-31] MEDS: Senna/Docusate Sodium 8.6/50 MG Tablet PO SCH ×2 (08:03→21:37)
[2018-05-31] MEDS: Nystatin 100,000 UNITS/GM Powder 15 GM Bottle TOPICAL SCH ×4 (08:04→21:36)
[2018-05-31] MEDS: Furosemide 40 MG Tablet PO SCH (08:04)
[2018-05-31 09:31] LABS: Baso % (Auto) 0.4 % (0.0-2.0); Eos # (Auto) 0.2 th/mm3 (0.0-0.4); Eos % (Auto) 5.1 % (0.0-4.0); Hematocrit 41.1 % (35.0-46.0); Hemoglobin 13.5 gm/dL (11.6-15.3); Lymph # (Auto) 0.9 th/mm3 (1.0-4.8); Lymph % (Auto) 19.6 % (9.0-44.0); Mean Corpuscular HGB Conc 32.8 % (32.0-36.0); Mean Corpuscular Hemoglobin 32.9 pg (27.0-34.0); Mean Corpuscular Volume 100.3 fL (80.0-100.0); Mean Platelet Volume 7.9 fL (7.0-11.0); Mono # (Auto) 0.6 th/mm3 (0.0-0.9); Mono % (Auto) 12.5 % (0.0-8.0); Neut # (Auto) 2.8 th/mm3 (1.8-7.7); Neut % (Auto) 62.4 % (16.0-70.0); Platelet Count 265 th/mm3 (150-450); Red Blood Count 4.09 mil/mm3 (4.00-5.30); Red Cell Distribution Width 14.9 % (11.6-17.2); White Blood Count 4.4 th/mm3 (4.0-11.0)
[2018-05-31 09:33] LABS: INR 1.8 Ratio; Prothrombin Time 18.3 sec (9.8-11.6)
[2018-05-31 09:50] LABS: Calcium 8.6 mg/dL (8.5-10.1); Carbon Dioxide 35.7 meq/L (21.0-32.0)
[2018-05-31] MEDS: Acetaminophen 325 MG Tablet PO PRN ×2 (10:02→21:31)
--- NOTE | 2018-05-31 10:16 | P.PNIM ---
Subjective Interval history: Follow-up visit CHF exacerbation, generalized weakness Patient is resting in bed with her breakfast tray in front of her. She reports feeling very weak. She states it took two nurses to get her out of bed and into a chair yesterday. She states "I can't go home like this." Patient educated to continued working out with physical therapy on a daily basis to improve her strength. Patient reports epigastric pain upon awakening this morning and is concerned that this may be secondary to her gallstones. Reminded patient she had declined HIDA scan at time of admission and that we would gladly reorder if she wished to proceed. Patient states "I am too old and I have a heart condition , I can't have surgery." Educated patient that Cardiology would be consulted for clearance if in fact she showed to have inflammation of her gallbladder. Patient declines any testing at present time. Denies chest pain, shortness of breath, palpitations, cough, fevers or chills. Physical Exam Vital signs: Vital Signs 05/30/18 11:53 05/30/18 12:00 05/30/18 12:43 Temperature 97.8 F Pulse Rate 96 H 85 85 Respiratory Rate 18 Blood Pressure 143/78 H Pulse Oximetry 90 L 05/30/18 16:00 05/30/18 20:00 05/31/18 07:50 Temperature 97.9 F 98.3 F 97.8 F Pulse Rate 80 106 H 99 H Respiratory Rate 16 16 20 Blood Pressure 150/82 H 166/96 H 139/76 Pulse Oximetry 98 92 L 93 L Intake & Output 05/30/18 05/31/18 05/31/18 18:59 06:59 18:59 Other: Date of Last Bowel Movement 05/30/18 05/30/18 Narrative: GENERAL: Elderly female, in nad. SKIN: Venous stasis dermatitis bilateral lower extremities. Warm and dry. HEAD: Normocephalic. EYES: No scleral icterus. No injection or drainage. NECK: Supple, trachea midline. No JVD or lymphadenopathy. CARDIOVASCULAR: Regular rate and rhythm without murmurs, gallops, or rubs. RESPIRATORY: Breath sounds equal bilaterally. No accessory muscle use. GASTROINTESTINAL: Abdomen soft, obese, non-tender, nondistended. MUSCULOSKELETAL: No cyanosis, or edema. NEURO: Alert and oriented. Residual Left LE weakness from previous CVA. Normal speech. Results Labs CBC & Chem 7: 05/31/18 08:08 05/31/18 08:08 Assessment and Plan Plan Patient is a 82-year-old female with a past medical history significant for atrial fibrillation on chronic anticoagulation with Coumadin, CHF, CVA with left lower extremity weakness, chronic venous insufficiency, hypertension and dyslipidemia. She presented to the emergency department complaining of increased lower extremity edema and increased abdominal distention. Lower extremity edema left > right -improved -declined lower extremity doppler in ED, states she is here for CHF exacerbation only and does not wish to undergo any unnecessary testing -BNP 123 -hx of bilateral lower extremity venous insufficiency Cholelithiasis with sludge -CT abdomen/pelvis shows above findings -US right upper quadrant shows gallstones and sludge -pt refuses HIDA scan, she states even if she has inflammation of her gallbladder she does not want to have surgery and would rather sign herself out AMA -reports epigastric pain, re-offered imaging for further evaluation, however, patient declines Congestive heart failure exacerbation, systolic dysfunction -improved -continue PO Lasix 40 mg daily Hx of Atrial fibrillation with embolic CVA -pharmacy dosing for Coumadin, INR 1.8 -continue home Cardizem Supratherapeutic INR -resolved Hx of CVA with LLE weakness -PT eval and treat MDM: self Code: Full GI ppx: not indicated DVT ppx: on Coumadin Discussed with: RN, patient, supervising MD Dispo: patient unable to get out of bed without assistance. She lives alone and states she will not be able to care for herself if she were to be discharged home in her current state. Patient requested to go to [facility], however, she was not accepted. Refusing to go to SNF. Would like to continue to work out with PT here until she is stronger. Continue daily PT until it is safe for patient to go home. Progress Note: Quality VTE Deep Vein Thrombosis/Pulmonary Embolism Present on Admission: No
[2018-05-31] MEDS: dilTIAZem CD 120 MG Capsule PO SCH (21:39)
[2018-06-01] MEDS: Nystatin 100,000 UNITS/GM Powder 15 GM Bottle TOPICAL SCH ×4 (09:37→21:44)
[2018-06-01] MEDS: Furosemide 40 MG Tablet PO SCH (09:37)
[2018-06-01] MEDS: Senna/Docusate Sodium 8.6/50 MG Tablet PO SCH ×2 (09:37→21:47)
--- NOTE | 2018-06-01 12:09 | P.PNIM ---
Subjective Interval history: Follow-up visit generalized weakness, dizzy/lightheaded, CHF exacerbation Patient is resting in bed. She states she got up with PT earlier today but was unable to do much secondary to feeling dizzy or lightheaded. Patient denies chest pain, epigastric pain, shortness of breath, palpitations, cough, fever or chills. No nausea or vomiting. Lab collected and awaiting results. Physical Exam Vital signs: Vital Signs 05/31/18 12:15 05/31/18 12:30 05/31/18 15:22 Temperature 97.9 F Pulse Rate 84 90 97 H Respiratory Rate 20 Blood Pressure 137/69 Pulse Oximetry 94 L 05/31/18 16:00 05/31/18 19:31 05/31/18 20:00 Temperature 97.7 F 97.9 F Pulse Rate 94 H 92 H 93 H Respiratory Rate 18 18 Blood Pressure 135/79 97/67 L Pulse Oximetry 94 L 94 L 05/31/18 21:38 05/31/18 23:58 06/01/18 04:00 Temperature 97.6 F 97.7 F Pulse Rate 89 89 94 H Respiratory Rate 20 20 Blood Pressure 137/75 160/75 H 156/74 H Pulse Oximetry 93 L 90 L 06/01/18 10:05 Temperature 97.9 F Pulse Rate 86 Respiratory Rate 16 Blood Pressure 117/84 Pulse Oximetry 93 L Intake & Output 05/31/18 06/01/18 06/01/18 18:59 06:59 18:59 Intake Total 480 / 480 Output Total 750 / 750 1300 / 1300 Balance -750 / -750 -820 / -820 Intake: Oral 480 / 480 Output: Urine 750 / 750 1300 / 1300 Other: # Voids 1 Date of Last Bowel Movement 05/31/18 05/31/18 # Bowel Movements 1 Narrative: GENERAL: Elderly female, in nad. SKIN: Venous stasis dermatitis bilateral lower extremities. Warm and dry. HEAD: Normocephalic. EYES: No scleral icterus. No injection or drainage. NECK: Supple, trachea midline. No JVD or lymphadenopathy. CARDIOVASCULAR: Regular rate and rhythm without murmurs, gallops, or rubs. RESPIRATORY: Breath sounds equal bilaterally. No accessory muscle use. GASTROINTESTINAL: Abdomen soft, obese, non-tender, nondistended. MUSCULOSKELETAL: No cyanosis, or edema. NEURO: Alert and oriented. Residual Left LE weakness from previous CVA. Normal speech. Results Labs CBC & Chem 7: 05/31/18 08:08 05/31/18 08:08 Assessment and Plan Plan Patient is a 82-year-old female with a past medical history significant for atrial fibrillation on chronic anticoagulation with Coumadin, CHF, CVA with left lower extremity weakness, chronic venous insufficiency, hypertension and dyslipidemia. She presented to the emergency department complaining of increased lower extremity edema and increased abdominal distention. Generalized weakness/debility -PT eval/treat, 7x week -pt under OBS status unable to go to SNF, not candidate for [facility] -pt lives alone and states she will not be able to take care herself at home in her current state. She states she feels weaker today than she has in a while. -continue to work out with PT until patient is stronger Lower extremity edema left > right -improved -declined lower extremity doppler in ED, states she is here for CHF exacerbation only and does not wish to undergo any unnecessary testing -hx of bilateral lower extremity venous insufficiency Cholelithiasis with sludge -CT abdomen/pelvis shows above findings -US right upper quadrant shows gallstones and sludge -pt refuses HIDA scan, she states even if she has inflammation of her gallbladder she does not want to have surgery and would rather sign herself out AMA -reported epigastric pain 05/31/18, re-offered imaging for further evaluation, however, patient declined -epigastric pain resolved 06/01/18 Congestive heart failure exacerbation, systolic dysfunction -improved -continue PO Lasix 40 mg daily Hx of Atrial fibrillation with embolic CVA -pharmacy dosing for Coumadin, today's INR pending -continue home Cardizem Supratherapeutic INR -resolved Hx of CVA with LLE weakness -PT eval and treat MDM: self Code: Full GI ppx: not indicated DVT ppx: on Coumadin Discussed with: RN, patient, supervising MD Dispo: patient unable to get out of bed without assistance. She lives alone and states she will not be able to care for herself if she were to be discharged home in her current state. Patient requested to go to [facility] re[facility], however, she was not accepted. Refusing to go to SNF. Would like to continue to work out with PT here until she is stronger. Continue daily PT until it is safe for patient to go home. Progress Note: Quality VTE Deep Vein Thrombosis/Pulmonary Embolism Present on Admission: No
[2018-06-01 12:40] LABS: Baso % (Auto) 0.7 % (0.0-2.0); Eos # (Auto) 0.2 th/mm3 (0.0-0.4); Eos % (Auto) 3.9 % (0.0-4.0); Hematocrit 42.1 % (35.0-46.0); Hemoglobin 13.9 gm/dL (11.6-15.3); Lymph # (Auto) 0.7 th/mm3 (1.0-4.8); Mean Corpuscular HGB Conc 32.9 % (32.0-36.0); Mean Corpuscular Hemoglobin 33.1 pg (27.0-34.0); Mean Corpuscular Volume 100.6 fL (80.0-100.0); Mean Platelet Volume 7.7 fL (7.0-11.0); Mono # (Auto) 0.4 th/mm3 (0.0-0.9); Mono % (Auto) 9.6 % (0.0-8.0); Neut # (Auto) 3.3 th/mm3 (1.8-7.7); Neut % (Auto) 69.8 % (16.0-70.0); Platelet Count 278 th/mm3 (150-450); Red Blood Count 4.19 mil/mm3 (4.00-5.30); Red Cell Distribution Width 15.1 % (11.6-17.2); White Blood Count 4.7 th/mm3 (4.0-11.0)
[2018-06-01 12:50] LABS: INR 1.9 Ratio; Prothrombin Time 19.3 sec (9.8-11.6)
[2018-06-01 13:04] LABS: Calcium 8.6 mg/dL (8.5-10.1); Carbon Dioxide 31.5 meq/L (21.0-32.0); Potassium 3.5 meq/L (3.5-5.1)
[2018-06-01] MEDS: Acetaminophen 325 MG Tablet PO PRN (16:10)
[2018-06-01] MEDS: dilTIAZem CD 120 MG Capsule PO SCH (21:49)
[2018-06-02] MEDS ORDERED: Acetaminophen 325 MG Tablet PO PRN (03:48)
[2018-06-02 07:35] LABS: INR 2.1 Ratio
[2018-06-02 08:10] LABS: Calcium 8.5 mg/dL (8.5-10.1); Potassium 3.8 meq/L (3.5-5.1)
[2018-06-02] MEDS: Senna/Docusate Sodium 8.6/50 MG Tablet PO SCH ×2 (08:45→21:29)
[2018-06-02] MEDS: Nystatin 100,000 UNITS/GM Powder 15 GM Bottle TOPICAL SCH ×4 (08:45→21:15)
[2018-06-02] MEDS: Furosemide 40 MG Tablet PO SCH (08:45)
--- NOTE | 2018-06-02 11:07 | P.PNIM ---
Subjective Interval history: Follow-up for weakness. Patient is seen attempting to ambulate to the bedside commode, with 2 nurses at bedside. Patient is reporting continued generalized weakness. Denies any other specific medical complaints. PT still recommending rehab placement although patient wants to stay in the hospital for rehab. Vital signs reviewed and stable. Physical Exam Vital signs: Vital Signs 06/01/18 12:39 06/01/18 17:23 06/01/18 19:39 Temperature 97.6 F 97.9 F 97.8 F Pulse Rate 83 78 85 Respiratory Rate 16 16 18 Blood Pressure 126/80 125/78 131/75 Pulse Oximetry 92 L 97 95 06/01/18 20:00 06/01/18 23:23 06/01/18 23:54 Temperature 98.2 F Pulse Rate 98 H 92 H Respiratory Rate 20 20 Blood Pressure 143/67 H Pulse Oximetry 90 L 06/02/18 00:00 06/02/18 04:00 06/02/18 08:39 Temperature 97.7 F 97.5 F L Pulse Rate 79 94 H 85 Respiratory Rate 18 20 Blood Pressure 131/71 145/90 H Pulse Oximetry 90 L 93 L Intake & Output 06/01/18 06/02/18 06/02/18 18:59 06:59 18:59 Output Total 1200 / 1200 1000 / 1000 1000 / 1000 Balance -1200 / -1200 -1000 / -1000 -1000 / -1000 Output: Urine 1200 / 1200 1000 / 1000 1000 / 1000 Other: # Voids 1 Date of Last Bowel Movement 06/01/18 06/01/18 06/02/18 # Bowel Movements 1 1 Narrative: GENERAL: Well-nourished, well-developed elderly female patient in [place]. SKIN: Warm and dry. No rash. Large lipoma right scapular region, nontender. HEENT: Normocephalic. Atraumatic. Mucous membranes pink and moist. CARDIOVASCULAR: Regular rate and rhythm. No murmur appreciated. RESPIRATORY: No accessory muscle use. Clear to auscultation. Breath sounds equal bilaterally. GASTROINTESTINAL: Abdomen soft, non-tender, nondistended. Normoactive bowel sounds x4. MUSCULOSKELETAL: No obvious deformities. Extremities without clubbing, cyanosis , or edema. NEUROLOGICAL: Awake and alert. No obvious cranial nerve deficits. Residual chronic left-sided weakness. Normal speech. Results Labs CBC & Chem 7: 06/01/18 11:57 06/02/18 06:31 Assessment and Plan Plan Patient is a 82-year-old female with a past medical history significant for atrial fibrillation on chronic anticoagulation with Coumadin, CHF, CVA with left lower extremity weakness, chronic venous insufficiency, hypertension and dyslipidemia. She presented to the emergency department complaining of increased lower extremity edema and increased abdominal distention. Generalized weakness/debility/difficulty with ADLs -Continue PT 7x week -pt under OBS status unable to go to SNF, not candidate for [facility] -pt lives alone and states she will not be able to take care herself at home in her current state. -continue to work out with PT until patient is stronger and safe to return home Lower extremity edema left > right -declined lower extremity doppler in ED, states she is here for CHF exacerbation only and does not wish to undergo any unnecessary testing -hx of bilateral lower extremity venous insufficiency -Improving Cholelithiasis with sludge -CT abdomen/pelvis shows above findings -US right upper quadrant shows gallstones and sludge -pt refuses HIDA scan, she states even if she has inflammation of her gallbladder she does not want to have surgery and would rather sign herself out AMA -reported epigastric pain 05/31/18, re-offered imaging for further evaluation, however, patient declined -epigastric pain resolved 06/01/18 -Tolerating oral intake Acute exacerbation of chronic systolic CHF -EMR reviewed, echocardiogram showed EF 40-45% on 10/27/17 -continue PO Lasix 40 mg daily -Will start on low-dose BETO inhibitor, consider also starting beta-maribel if BP will allow -symptoms improving Hx of Atrial fibrillation with embolic CVA -pharmacy dosing for Coumadin, INR 2.1, therapeutic -continue home Cardizem Supratherapeutic INR -resolved, INR 2.1 Hx of CVA with LLE weakness -PT eval and treat, recommending rehab DVT ppx: on Coumadin Dispo: patient unable to get out of bed without assistance. She lives alone and states she will not be able to care for herself if she were to be discharged home in her current state. Patient requested to go to [facility], however, she was not accepted. Refusing to go to SNF. Patient prefers to continue to work with PT here until she is stronger. Continue daily PT until it is safe for patient to go home. Attending Attestation patient was seen and examined. still with generalized weakness. doesn't want to go to SNF. needs PT daily. Progress Note: Quality VTE Deep Vein Thrombosis/Pulmonary Embolism Present on Admission: No
[2018-06-02] MEDS: Acetaminophen 325 MG Tablet PO PRN (21:29)
[2018-06-02] MEDS: dilTIAZem CD 120 MG Capsule PO SCH (21:29)
[2018-06-03] MEDS ORDERED: Lisinopril 5 MG Tablet PO SCH (09:00)
[2018-06-03] MEDS: Nystatin 100,000 UNITS/GM Powder 15 GM Bottle TOPICAL SCH (09:12)
[2018-06-03] MEDS: Furosemide 40 MG Tablet PO SCH (09:12)
[2018-06-03] MEDS: Senna/Docusate Sodium 8.6/50 MG Tablet PO SCH (09:12)
--- NOTE | 2018-06-03 11:05 | P.DS ---
DS: Providers Date of admission: 05/26/18 05:53 Primary care physician: Cedrick Cox Anticipated date of discharge: 06/03/18 Brief History from admission: Patient is a 82 year old female with a past medical history significant for atrial fibrillation on Coumadin, CHF, bilateral lower extremity venous insufficiency, CVA with left LE weakness, hypertension and dyslipidemia. She presented to the emergency department complaining of worsening lower extremity edema, left greater than right and abdominal distention. Patient reports muscle cramps to her left lower extremity. She has cut back on he Lasix secondary to having to urinate frequently. She denies chest pain, palpitations, cough, fever or chills. Endorses intermittent shortness of breath but denies orthopnea or PND. A CT abdomen/pelvis was obtained in ED to evaluate for her abdominal discomfort and showed cholelithiasis with sludge. A right upper quadrant ultrasound also shows gallbladder sludge and stones. ED provider spoke with radiologist who expressed concern over possible cholecystitis. Cipro and Flagyl were initiated in ED. Alk phos is elevated and 151, however, patients total bili, AST and ALT levels are within normal limits. BNP is 123, initial random troponin is negative. Serum lipase level is 144. Patient refused a lower extremity doppler in ED. Her INR is elevated and 3.9. Patient has been taking Amoxicillin for an upcoming tooth extraction. Patient update on day of discharge: Patient is seen resting in bed. She states she did not sleep well last night due to interruptions, otherwise has no specific medical complaints. She states she improved with physical therapy yesterday. She is agreeable to go home with home health care. She has no new medical complaints at this time. DS: Summary 82-year-old female with a past medical history significant for atrial fibrillation on chronic anticoagulation with Coumadin, CHF, CVA with left lower extremity weakness, chronic venous insufficiency, hypertension and dyslipidemia. She presented to the emergency department complaining of increased lower extremity edema and increased abdominal distention. Generalized weakness/debility/difficulty with ADLs: Continued PT 7x week. Pt under OBS status unable to go to SNF, not candidate for [facility]. Pt lives alone and states she will not be able to take care herself at home in her current state. She continued to work with PT and after 8days of hospitalization, she was able to ambulate safely and PT then recommended [facility]. Case management assisted with discharge planning. Lower extremity edema left > right: Patient declined lower extremity doppler in ED, states she is here for CHF exacerbation only and does not wish to undergo any unnecessary testing. Hx of bilateral lower extremity venous insufficiency. Improved. Outpatient f/up. Cholelithiasis with sludge: CT abdomen/pelvis shows above findings. US right upper quadrant shows gallstones and sludge. Pt refuses HIDA scan, she states even if she has inflammation of her gallbladder she does not want to have surgery and would rather sign herself out AMA. Reported epigastric pain 05/31/18 , re-offered imaging for further evaluation, however, patient declined. Epigastric pain resolved 06/01/18. Tolerating oral intake. Outpatient f/up with general surgery if symptoms persist after discharge. Acute exacerbation of chronic systolic CHF: EMR reviewed, echocardiogram showed EF 40-45% on 10/27/17. Continued PO Lasix 40 mg daily. Started on low-dose BETO inhibitor and metoprolol. Symptoms improved. O2 sat stable on room air. Outpatient f/up with cardiology. Hx of Atrial fibrillation with embolic CVA: pharmacy dosing for Coumadin, INR 2.1, therapeutic. Continue home Cardizem. Stable for discharge. Hx of CVA with LLE weakness: PT eval and treat, initially recommending rehab, however was unable to arrange placement therefore patient stayed in hospital for daily physical therapy, and eventually improved well enough to return home with [facility]. Dispo: patient unable to get out of bed without assistance. She lives alone and states she will not be able to care for herself if she were to be discharged home in her current state. Patient requested to go to [facility], however, she was not accepted. Refusing to go to SNF. Patient prefers to continue to work with PT here until she is stronger. Continued daily PT until it is safe for patient to go home. After 8days of hospitalization, patient improved with PT , and was cleared by PT to return home with [facility]. Time Spent with Patient Total time spent providing and/or coordinating discharge services: Greater than 30 minutes Quality: VTE Deep Vein Thrombosis/Pulmonary Embolism Present on Admission: No Exam Narrative Exam Narrative: GENERAL: Well-nourished, well-developed elderly female patient in NAD. SKIN: Warm and dry. No rash. Large lipoma right scapular region, nontender. HEENT: Normocephalic. Atraumatic. Mucous membranes pink and moist. CARDIOVASCULAR: Regular rate and rhythm. No murmur appreciated. RESPIRATORY: No accessory muscle use. Clear to auscultation. Breath sounds equal bilaterally. GASTROINTESTINAL: Abdomen soft, non-tender, nondistended. Normoactive bowel sounds x4. MUSCULOSKELETAL: No obvious deformities. Extremities without clubbing, cyanosis , or edema. NEUROLOGICAL: Awake and alert. No obvious cranial nerve deficits. Residual chronic left-sided weakness. Normal speech. Results Impressions ITS Impressions Chest X-Ray 05/25/18 22:50 CONCLUSION: No significant change Abdomen/Pelvis CT 05/26/18 00:58 CONCLUSION: 1. Gallstones and gallbladder sludge. 2. No definite acute CT findings in the abdomen or pelvis. Gallbladder Ultrasound 05/26/18 02:53 CONCLUSION: Gallstones and gallbladder sludge. Discharge Plan Discharge Disposition Patient Disposition: W/Home Health Service Discharge Condition Condition: Stable Discharge Order Discharge Orders: Discharge Order (Routine); Ordered 06/03/18 Ordered By: Antonella Padilla Discharge Details Anticipated Discharge Date: 06/03/18 Physicians Team Primary Care Provider: Cedrick Cox Attending Provider: Michael Avalos Other Providers: Choice,Doctors ; [facility],Agency Rxs /Orders / Referrals /Forms Prescriptions: New potassium chloride [Klor-Con 10] 10 mEq Tablet Extended Release 10 meq PO DAILY Qty: 30 RF: 0 lisinopril 5 mg Tablet 5 mg PO DAILY Qty: 30 RF: 0 nystatin [Nystop] 100,000 unit/gram Powder See Label Instructions .ROUTE .COMPLEX 14 Days RF: 0 metoprolol tartrate 25 mg tablet 12.5 mg PO BID Qty: 30 RF: 0 Continue warfarin 5 mg Tablet 5 mg PO DAILY RF: 0 [id number] Tablet 1 tab PO DAILY RF: 0 diltiazem HCl 120 mg Tablet Extended Release 24 Hr 120 mg PO DAILY RF: 0 furosemide [Lasix] 40 mg Tablet 40 mg PO DAILY RF: 0 Discontinued amoxicillin 500 mg Capsule 500 mg PO BID RF: 0 Ambulatory Orders / Order Sets / DME: Wheelchair (1 each) (Routine) Location: Determined by Patient Ordered By: Antonella Padilla Referrals: Process Control Engineer [Outside] - See Instructions Cedrick Cox D.O. [Primary Care Provider] - See Instructions Discharge Instructions Patient Printed Instructions: Heart Failure (DC), Gallstones (DC) Post Discharge Care Plan Care Plan Goals: Your Health Problems: Goals to Promote Your Health: * To prevent worsening of your condition * To maintain your health at the optimal level Directions to Meet Your Goals: * Take your medications as prescribed * Follow your dietary instruction * Follow activity as directed * Keep your appointments as scheduled * Take your immunizations and boosters as scheduled * If your symptoms worsen call your PCP * If no PCP go to Urgent Care or Emergency Room Smoking is dangerous to your health. Avoid second hand smoke. You may reach the 24-hour crisis hotline for domestic abuse at . Status ED Status: Left Department Discharge Information Discharge Date/Time: 06/03/18 14:51
--- NOTE | 2018-06-03 11:29 | P.DCO ---
Diagnosis (1) CHF (congestive heart failure): Status: Acute (2) CVA (cerebral vascular accident): Status: Chronic (3) Afib: Status: Chronic (4) Edema: Status: Acute (5) Hypertensive urgency: Status: Acute (6) Acute exacerbation of CHF (congestive heart failure): Status: Acute Physical Therapy Order: Evaluate and treat, Improve ambulation and Strength and gait training Occupational Therapy Order: Evaluate and treat, Improve ADL and Gross motor coordination Home Health Nursing Order: Medical education, Signs/symptoms of disease process and Nursing assessment with vital signs Home Health Aide Order: To assist in: Bathing and personal care and skin care instructor and meal prep Streetsweeper Operator Order: To evaluate: Living conditions/environment Order: To provide: Long range planning and Community services Case Management Consult Case Management Consult-Home Health: Yes I have seen patient Lana James on 06/03/18. My clinical findings support the need for the requested home health care services because: Limited mobility due to disease progression, Deconditioned with increased weakness, Limited ability to care for self and High risk of falls I certify that my clinical findings support that this patient is homebound because: Unsteady gait/balance, Unsafe to leave home unassisted and Unable to use public transportation _ (1) Acute exacerbation of CHF (congestive heart failure) Qualifiers: Heart failure type: (2) CHF (congestive heart failure) Qualifiers: Heart failure chronicity: acute on chronic Heart failure type: systolic Qualified Code(s): I50.23 - Acute on chronic systolic (congestive) heart failure (3) Afib Qualifiers: Atrial fibrillation type: chronic Qualified Code(s): I48.2 - Chronic atrial fibrillation (4) Edema Qualifiers: Edema type: unspecified Malnutrition edema type: Trimester: Qualified Code(s): R60.9 - Edema, unspecified (5) CVA (cerebral vascular accident) Qualifiers: CVA mechanism: unspecified Laterality of affected vessel: Precerebral and cerebral artery: Qualified Code(s): I63.9 - Cerebral infarction, unspecified
[2018-06-03 12:15] VITALS: BP 128/70; PULSE 78; RESP 16; TEMP 97.6; O2SAT 94
--- NOTE | 2018-06-03 13:51 | P.PNIM ---
patient was seen and examined today. resting comfortably with no acute distress or new complaints. was evaluated by PT who recommended C. patient will be discharged home with C.
== END 2018-06-03 14:51 | disposition home health service (06) ==
LOC: NEDA 22:27 → NEPE 22:27 → NEPHCDU 05-26 07:15
PROVIDERS: ADMIT Internal Medicine; ATTEND Internal Medicine
DX: R32 Unspecified urinary incontinence; K82.8 Other specified diseases of gallbladder; K59.00 Constipation, unspecified; I11.0 Hypertensive heart disease with heart failure; E78.5 Hyperlipidemia, unspecified; D17.21 Benign lipomatous neoplasm of skin and subcutaneous tissue of right arm; Z79.899 Other long term (current) drug therapy; I16.0 Hypertensive urgency; I50.23 Acute on chronic systolic (congestive) heart failure; I87.2 Venous insufficiency (chronic) (peripheral); I69.344 Monoplegia of lower limb following cerebral infarction affecting left non-dominant side; Z79.01 Long term (current) use of anticoagulants; I48.2 Chronic atrial fibrillation; K80.20 Calculus of gallbladder without cholecystitis without obstruction
CPT/HCPCS: 71010; 71045; 74177; 76705; 80048; 80053; 81001; 82550; 82552; 83520; 83690; 83735; 83880; 84484; 85025; 85610; 85730; 87086; 93005; 96361; 96365; 96366; 97110; 97116; 97162; 97530; 99285; G0378; G8987; G8988; J0744; J7030; P9612; Q9967